=== PATIENT | female | born 1970 | race Two or more races ===

== ENCOUNTER 2022-06-04 13:55 | Inpatient (IN) | payer OTHER, MEDICAID, SELFPAY ==
[2022-06-04 14:25] VITALS: BP 140/91; PULSE 78; RESP 16; TEMP 36.6; O2SAT 98; BMI 27.4
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
--- NOTE | 2022-06-04 15:08 | MHC.CARE ---
Care Team completed [facility] smart sheet.
[2022-06-04] MEDS: LORazepam 1 MG TABLET PO ×2 (15:10→22:26)
[2022-06-04 15:38] LABS: Appearance Urine Clear; Color Urine Yellow; Glucose Urine UA Negative (Negative); Leukocyte Esterase Urine Trace (Negative); Nitrite Urine Negative (Negative); PH 5.5 (5.0-9.0); Specific Gravity - Urine 1.015 (1.005-1.025); UMIC TRIGGER UACC YES; Urine Blood Trace (Negative); Urine Ketones Negative (Negative); Urine Protein Negative (Neg-Trace)
[2022-06-04 15:40] LABS: UPreg QC Valid YES; Urine Pregnancy NEGATIVE (NEGATIVE)
[2022-06-04 16:02] LABS: Bacteria Urine None Seen (None Seen); Hyaline Casts Urine 0-2 /LPF (0-2); RBC Urine 0-2 /HPF (0-2); WBC Urine 0-5 /HPF (0-5)
[2022-06-04 16:02] LABS: MANUAL DIFF FLAG NO
[2022-06-04 16:07] LABS: Basophils Percent Auto 0.5 % (0-2); Eosinophils Absolute Auto 0.1 X10*3/uL (0.0-0.4); Eosinophils Percent Auto 1.7 % (0-4); Hematocrit 47.1 % (37.0-47.0); Hemoglobin 15.2 g/dl (12.0-16.0); Imm Gran Abs Auto 0.02 X10*3/uL (0.00-0.03); Imm Gran Pct Auto 0.3 % (0.0-0.4); Lymphocytes Absolute Auto 2.4 X10*3/uL (1.2-4.9); Lymphocytes Percent Auto 31.8 % (20-40); Mean Corpuscular HGB Conc 32.3 g/dl (31.0-35.0); Mean Corpuscular Hemoglobin 27.2 pg (27.0-33.0); Mean Corpuscular Volume 84.4 fL (80.0-98.0); Mean Platelet Volume 9.4 fL (9.4-12.3); Monocytes Absolute Auto 0.4 X10*3/uL (0.1-1.2); Monocytes Percent Auto 4.9 % (2-11); Neutrophils Absolute Auto 4.6 x10*3/uL (2.0-8.3); Neutrophils Percent Auto 60.8 % (45-73); Platelet Count 385 X10*3/uL (160-400); Red Blood Count 5.58 X10*6/uL (4.20-5.50); Red Cell Distribution Width 13.7 % (11.0-16.0); White Blood Count 7.5 X10*3/uL (4.8-10.8)
[2022-06-04 16:22] LABS: Alanine Aminotransferase 36 U/L (0-31); Albumin Level 4.2 g/dL (3.5-5.0); Alkaline Phosphatase 96 U/L (39-117); Anion Gap 19 (12-20); Aspartate Amino Transferase 39 U/L (5-31); Bilirubin Direct < 0.2 mg/dL (0.0-0.5); Bilirubin Total 0.4 mg/dL (0.0-1.0); Blood Urea Nitrogen 10 mg/dL (9-16); Calcium 9.1 mg/dL (8.4-10.2); Carbon Dioxide 18 mmol/L (22-29); Chloride 105 mmol/L (96-108); Creatinine Clr Calc Pharmacy 87.8; Estimated Glomerular Filt Rate > 60; Glucose Random 97 mg/dL (60-115); Potassium 4.8 mmol/L (3.3-5.1); Sodium 137 mmol/L (135-145); Total Protein 7.8 g/dL (6.5-8.0)
[2022-06-04 17:43] LABS: Amphetamine Screen Urine Not Detected (Not Detect); Barbiturates, Urine Not Detected (Not Detect); Benzodiazepines Screen Urine Not Detected (Not Detect); Cannabinoid Screen Urine POSITIVE (Not Detect); Cocaine Screen Urine Not Detected (Not Detect); Fentanyl, urine Not Detected (Not Detect); Opiate Screen Urine Not Detected (Not Detect); Phencyclidine Screen Urine Not Detected (Not Detect)
[2022-06-04 22:15] LABS: COVID-19 Test Negative (Negative); IDNOW Serial# 55D5AD1C
--- NOTE | 2022-06-04 23:22 | PC.NURSE ---
Patient sleeping comfortably, no distress noted at this time. Will continue to monitor.
[2022-06-05 00:51] VITALS: BP 134/106; PULSE 113; RESP 17; TEMP 36.5; O2SAT 97
[2022-06-05] MEDS: LORazepam 1 MG TABLET PO ×3 (01:01→20:56)
[2022-06-05] MEDS: Acetaminophen 325 MG TABLET 975 MG PO (01:01)
--- NOTE | 2022-06-05 06:39 | PC.NURSE ---
Patient was up few times to used the bathroom, no distress noted. Will continue to monitor.
[2022-06-05 08:58] VITALS: BP 139/86; PULSE 82; RESP 20; TEMP 36.7; O2SAT 95
--- NOTE | 2022-06-05 09:29 | PC.NURSE ---
pleasant this morningm, ambulatory to bathroom with a steady gait, makes needs known., no distress. states is aware of plan of care.
--- NOTE | 2022-06-05 12:44 | ECG_ITS ---
Test Reason : medical clearance Blood Pressure : / mmHG Vent. Rate : 080 BPM Atrial Rate : 080 BPM P-R Int : 164 ms QRS Dur : 076 ms QT Int : 378 ms P-R-T Axes : 048 025 021 degrees QTc Int : 435 ms Normal sinus rhythm Normal ECG No previous ECGs available Referred By: Juana Lowry Electronically Signed By:WALDO VARGAS MD
--- OUTSIDE RECORDS SUMMARY | 2022-06-05 14:06 | XMS_ITS | Continuity of Care Document ---
:1970 Author Organization [facility] Address [address] [place] [address]- Care Team Providers Name Role Phone Not on Staff, PCP Primary Care Physician Unavailable Encounter [facility] Date(s): 09/12/19 - 09/12/19 [facility] [address] [place] [id number]- [facility] Discharge Disposition: A-D/C Home Attending Physician: Wenceslao Pollock DO Admitting Physician: Wenceslao Pollock DO Referring Physician: Not on Staff, Referring MD Allergies, Adverse Reactions, Alerts No Known Medication Allergies Medications LORazepam 0.5 mg oral tablet 1 tablet = 0.5 mg, By Mouth, 2 times a day, mass pat checked max amount 1 mg daily, # 5 tablet, 0 Refills, Acute 09/14/19 12:00:00 EST, 09/12/19 20:00:00 EST, Tablet Start Date: 09/12/19 Stop Date: 09/14/19 Status: Ordered Vital Signs Most recent to oldest [Reference Range]: 1 2 Oxygen Saturation [94-100 %] 100 % 100 % (09/12/19 7:12 PM) (09/12/19 2:42 PM) Pulse Rate [55-90 bpm] 98 bpm 85 bpm *H* (09/12/19 2:42 PM) (09/12/19 7:12 PM) Blood Pressure [90-138/55-84 mm Hg] 123/80 mm Hg 124/ 79 mm Hg (09/12/19 7:12 PM) (09/12/19 2:42 PM) Respiratory Rate [16-30 br/min] 16 br/min 16 br/mi n (09/12/19 7:12 PM) (09/12/19 2:42 PM) Temperature [96.8-100.4 DegF] 98.4 DegF (09/12/19 2:42 PM) Mode of Delivery (Oxygen) Room air Room air (09/12/19 7:12 PM) (09/12/19 2:42 PM) Blood pressure sites Arm, right Arm, left (09/12/19 7:12 PM) (09/12/19 2:42 PM) Temperature Route Oral (09/12/19 2:42 PM)
--- OUTSIDE RECORDS SUMMARY | 2022-06-05 14:07 | XMS_ITS | Continuity of Care Document ---
:1970 Author Organization [facility] Address [address] [place] [address]- Care Team Providers Name Role Phone Not on Staff, PCP Primary Care Physician Unavailable Encounter [facility] Date(s): 04/02/22 - 04/02/22 [facility] [address] [place] [address]- Discharge Disposition: A-D/C Walkout Attending Physician: Not on Staff, Attending MD Admitting Physician: Not on Staff, Admitting MD Referring Physician: Not on Staff, Referring MD Allergies, Adverse Reactions, Alerts Substance Reaction Severity Status Paxil Active KlonoPIN Active Results Radiology Reports Exam Date Time Procedure Performing Provider Status 04/02/22 1:24 AM Chest 2 Views Frontal and Lat Lawrence , Bar; Au th (Verified) Notes:(Chest 2 Views Frontal and Lat) Reason For Exam: Chest Pain;Other:RESULT: Chest 2 Views Frontal and Lat Chest 2 Views Frontal and Lat Reason: Chest Pain; Clinical Question(s): Other: COMPARISON: None. FINDINGS: LINES AND TUBES: None. LUNGS AND PLEURA: Clear lungs. Normal pulmonary vascularity. No pleural effusion. No pneumothorax. HEART, MEDIASTINUM AND YENY: Heart is normal in size. Normal upper mediastinal and hilar contour. BONES AND SOFT TISSUES: No acute abnormality. Catheter projecting over the right upper quadrant partially visualized. IMPRESSION: No acute abnormality. WSN: [id number] Ordering Physician: Enzo Andre Dictated By: Selvin Ramirez MD Dictated Date/Time: 04/02/22 7:51 am Reviewed By: Selvin Ramirez MD Signed By: Selvin Ramirez MD Signed Date/Time: 04/02/22 7:51 am Transcribed By: JULES Transcribed Date/Time: 04/02/22 7:50 am Vital Signs Most recent to oldest 1 2 3 [Reference Range]: Oxygen Saturation [94-100 %] 100 % 100 % 100 % (04/02/22 5:51 AM) (04/02/22 4:38 AM) (04/02/22 3:1 2 AM) Pulse Rate [55-90 bpm] 75 bpm 74 bpm 73 bpm (04/02/22 5:51 AM) (04/02/22 4:38 AM) (04/02/22 3:1 2 AM) Blood Pressure [90-138/55-84 120/59 mm Hg 124/81 mm Hg 110 /77 mm Hg mm Hg] (04/02/22 5:51 AM) (04/02/22 4:38 AM) (04/02/22 3:1 2 AM) Respiratory Rate [16-30 18 br/min 16 br/min 16 br/mi n br/min] (04/02/22 4:38 AM) (04/02/22 1:20 AM) (04/02/22 12: 49 AM) Temperature [96.8-100.4 DegF] 97.8 DegF 97.8 DegF 97 .9 DegF (04/02/22 5:51 AM) (04/02/22 4:38 AM) (04/02/22 3:1 2 AM) Mode of Delivery (Oxygen) Room air Room air Room a ir (04/02/22 5:51 AM) (04/02/22 4:38 AM) (04/02/22 3:1 2 AM) Blood pressure sites Arm, left Arm, left Arm, left (04/02/22 5:51 AM) (04/02/22 4:38 AM) (04/02/22 3:1 2 AM) Temperature Route Oral Oral Oral (04/02/22 5:51 AM) (04/02/22 4:38 AM) (04/02/22 3:1 2 AM)
--- OUTSIDE RECORDS SUMMARY | 2022-06-05 14:07 | XMS_ITS | Continuity of Care Document ---
:1970 Author Organization [facility] Address [address] [place] [address]- Care Team Providers Name Role Phone Not on Staff, PCP Primary Care Physician Unavailable Encounter [facility] Date(s): 10/21/19 - 10/21/19 [facility] [address] [place] [address]- [facility] Encounter Diagnosis Anxiety (Final) - 10/21/19 Discharge Disposition: A-D/C Home Attending Physician: Paty Burk MD Admitting Physician: Paty Burk MD Referring Physician: Not on Staff, Referring MD Allergies, Adverse Reactions, Alerts No Known Medication Allergies Vital Signs Most recent to oldest [Reference Range]: 1 Oxygen Saturation [94-100 %] 100 % (10/21/19 3:22 PM) Pulse Rate [55-90 bpm] 85 bpm (10/21/19 3:22 PM) Blood Pressure [90-138/55-84 mm Hg] 127/77 mm Hg (10/21/19 3:22 PM) Respiratory Rate [16-30 br/min] 18 br/min (10/21/19 3:22 PM) Temperature [96.8-100.4 DegF] 98.0 DegF (10/21/19 3:22 PM) Mode of Delivery (Oxygen) Room air (10/21/19 3:22 PM) Blood pressure sites Arm, left (10/21/19 3:22 PM) Temperature Route Oral (10/21/19 3:22 PM)
--- NOTE | 2022-06-05 14:14 | PC.NURSE ---
patient medicated per order
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
[2022-06-05 18:09] VITALS: BMI 33.8
[2022-06-05] MEDS: hydrOXYzine HCL 25 MG TABLET PO (20:56)
[2022-06-05] MEDS: Acetaminophen 325 MG TABLET 650 MG PO (20:56)
[2022-06-05 20:58] VITALS: BP 127/83; PULSE 102; TEMP 36.7; O2SAT 97
[2022-06-06] MEDS: Acetaminophen 325 MG TABLET 650 MG PO (07:01)
[2022-06-06] MEDS: LORazepam 1 MG TABLET PO (07:02)
[2022-06-06 08:00] VITALS: BP 109/65; PULSE 77; RESP 18; TEMP 36.7; O2SAT 98
[2022-06-06 09:14] LABS: Estimated Average Glucose 108 mg/dL; Hemoglobin A1c % 5.4 %
[2022-06-06 09:33] LABS: Alanine Aminotransferase 29 U/L (0-31); Alkaline Phosphatase 89 U/L (39-117); Anion Gap 16 (12-20); Aspartate Amino Transferase 23 U/L (5-31); Bilirubin Direct < 0.2 mg/dL (0.0-0.5); Bilirubin Total 0.4 mg/dL (0.0-1.0); Blood Urea Nitrogen 12 mg/dL (9-16); Calcium 9.4 mg/dL (8.4-10.2); Carbon Dioxide 23 mmol/L (22-29); Chloride 104 mmol/L (96-108); Cholesterol 204 mg/dL; Creatinine Clr Calc Pharmacy 97.4; Estimated Glomerular Filt Rate > 60; Glucose Fasting 104 mg/dL (60-99); HDL Cholesterol 37 mg/dL; LDL Cholesterol Calculated 146 mg/dl; Potassium 4.3 mmol/L (3.3-5.1); Sodium 139 mmol/L (135-145); Total Protein 6.9 g/dL (6.5-8.0); Triglycerides 105 mg/dL
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
[2022-06-06 09:50] LABS: Free T4 (Free Thyroxine) 1.09 ng/dL (0.71-1.85); Thyroid Stimulating Hormone 1.15 uIU/mL (0.32-4.0)
[2022-06-06 09:58] LABS: Folate 7.6 ng/mL (> or = 4.0); Vitamin B12 339 pg/mL (200-900)
[2022-06-06] MEDS: LORazepam 0.5 MG TABLET PO ×2 (15:22→20:27)
--- NOTE | 2022-06-06 15:28 | PC.NURSE ---
Patient provided number for sister friend Lyssa Barnes [phone].
--- NOTE | 2022-06-06 16:37 | MHC.CLN ---
NUTRITION CONSULT FOR POOR APPETITE/WEIGHT LOSS. PATIENT REPORTS THAT SHE IS TRYING TO EAT SOMETHING AT EACH MEAL. DISCUSSED SNACKING/AVAILABILITY OF SNACKS ON UNIT. DOES NOT TYPICALLY SNACK. NO ENSURE SUPPLEMENT PER CONVERSATION. CONTINUE REGULAR DIET. PROVIDE MEAL AND SNACK PREFERENCES ABLE.
[2022-06-06] MEDS: hydrOXYzine HCL 25 MG TABLET PO (20:27)
[2022-06-06 21:34] VITALS: BP 125/78; PULSE 101; TEMP 36.7; O2SAT 96
[2022-06-07 07:00] VITALS: BMI 34.4
[2022-06-07 08:30] VITALS: BP 113/77; PULSE 91; RESP 18; TEMP 36.7; O2SAT 98
[2022-06-07] MEDS: LORazepam 0.5 MG TABLET PO ×3 (09:27→21:41)
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
[2022-06-07] MEDS: Acetaminophen 325 MG TABLET 650 MG PO (13:52)
[2022-06-07 20:37] VITALS: BP 118/78; PULSE 95; RESP 18; TEMP 36.8; O2SAT 95
--- NOTE | 2022-06-08 08:25 | HO.PSYCHPN ---
Subjective Subjective Date of Service: 06/08/22 Reason For Visit: Depression Interim History: Pt continues to endorse depressed mood, anhedonia, hopelessness. She is overwhelmed by fact that now needs to find new services, housing, and she has no income. Pt denies SI/HI. Long hx of depression, multiple medication trials. Pt reports sleeping well. No behavioral concerns. Review of Systems Review of Systems Except for painful boil on her back Yes all other systems are reviewed and are negative Constitutional: Reports as per HPI and Reports lethargy Eyes: Reports no additional eye complaints Reports system reviewed and no additional complaints, except as documented Cardiovascular: Reports no additional cardiovascular complaints and Denies dyspnea Respiratory: Denies chest congestion, Denies cough and Denies dyspnea Gastrointestinal: Reports no additional gastrointestinal complaints Mental Status Exam Mental Status Exam Narrative: Appearance: casually groomed, fair hygiene in NAD Behavior:cooperative psychomotor: no agitation or retardation noted Speech: clear, normal rate/rhythm/volume, spontaneous Thought process: linear Thought content: devastated by daughter's behavior but help seeking and future oriented. Mood: depressed Affect: congruent SI: passive, no plan or intent HI: none VH/AH: none Delusions: none Insight/judgment: fair x 3. Memory/cog: alert, oriented x 3. reports memory problems, difficulty remembering name of meds she's been on for long time. Consider MOCA. Diagnostics Vital Signs (24Hr): Vital Signs - 24 hr 06/08/22 09:38 06/08/22 20:51 Temperature 98.5 F 97.6 F Pulse Rate 95 101 H Respiratory Rate 18 18 Blood Pressure 105/71 113/59 L Pulse Oximetry 98 98 Oxygen Delivery Method Room Air Room Air BMI result Body Mass Index 34.4 Labs Results: 06/04/22 15:50 06/06/22 08:40 Medications Medications Current Medications Acetaminophen (Acetaminophen 325 Mg Tablet) 650 mg PO Q6H PRN PRN Reason: Headache/Pain Mild Scale (1-3) Last Admin: 06/08/22 20:48 Dose: 650 mg Al Hydroxide/Mg Hydroxide (Magnesium Hydrox/Alum Hydrox 30 Ml Oral.Susp) 30 ml PO Q6H PRN PRN Reason: Heartburn/Nausea Hydroxyzine HCl (Hydroxyzine Hcl 25 Mg Tablet) 25 mg PO Q6H PRN PRN Reason: Anxiety Last Admin: 06/06/22 20:27 Dose: 25 mg Lorazepam (Lorazepam 0.5 Mg Tablet) 0.5 mg PO TID LOURDES Last Admin: 06/08/22 20:48 Dose: 0.5 mg Magnesium Hydroxide (Milk Of Magnesia 30 Ml Oral.Susp) 30 ml PO DAILY PRN PRN Reason: Constipation Nicotine Polacrilex (Nicotine Polacrilex 2 Mg Gum) 4 mg BUCCAL Q2H PRN PRN Reason: Nicotine Cravings Trazodone HCl (Trazodone Hcl 50 Mg Tablet) 50 mg PO BEDTIME PRN PRN Reason: Insomnia Allergies Allergies Allergy/AdvReac Type Severity Reaction Status Date / Time clonazepam [From Klonopin] Allergy Unknown Verified 06/04/22 14:44 paroxetine [From Paxil] Allergy Unknown Verified 06/04/22 14:44 Assessment & Plan Assessment & Plan (1) MDD (major depressive disorder), recurrent episode, moderate: Status: Acute Code(s): F33.1 - Major depressive disorder, recurrent, moderate Plan Ms. Padilla is a 52 year-old woman with hx of MDD, trauma. Self presented to [facility] ED reporting SI, hopeless, helpless, insetting of recently moving to [place] to stay with daughter who ultimately kick her out. Pt currently staying with friend and plans to stay in [place]. We discussed risks, benefits and alternative treatment options. PLAN 1. Admit to M3, CV, 15 minutes checks for safety. 2. Ativan 0.5mg po BID. will called former psychiatrist to inquire about past med trials- pt does not remember. 3. Aftercare planning- connect with OP psych services, [facility] 4. Pt reports memory problems, will do MOCA. 06/07: continue current medications, discussed TMS OP. awaiting call from former psychiatrist re: med trials as pt does not remember 06/08 continue current tx. I spent minutes with the patient and/or on the patient floor today, greater than?50% of which was spent counseling/coordinating care. Reason for contiued inpatient stay Substantial Risk for: inability to function
[2022-06-08 09:38] VITALS: BP 105/71; PULSE 95; RESP 18; TEMP 36.9; O2SAT 98
[2022-06-08] MEDS: LORazepam 0.5 MG TABLET PO ×3 (10:29→20:48)
[2022-06-08] MEDS: Acetaminophen 325 MG TABLET 650 MG PO ×2 (13:47→20:48)
[2022-06-08 20:51] VITALS: BP 113/59; PULSE 101; RESP 18; TEMP 36.4; O2SAT 98
--- NOTE | 2022-06-09 08:03 | P.PNPSI_ITS ---
Subjective Subjective Date of Service: 06/09/22 Reason For Visit: Depression Subjective Notes: Conditional Voluntary Healthcare Proxy: No Guardianship: No Medical Problems Affecting Mental Status: No Interim History: Patient was seen and discussed in rounds today. Records and plans were revi ewed. She is slowly settling in. She complains of a painful boil/cyst on her back. I requested a hospitalist consult. She has been isolative. Eating and sleeping adequately. ECT is being considered. No complaints today. No changes were made today Medication Compliance: Yes Side effects from medications: Yes Review of Systems Review of Systems Except for painful boil on her back Yes all other systems are reviewed and are negative Mental Status Exam Mental Status Exam Narrative: Appearance: casually groomed, fair hygiene in NAD Behavior:cooperative psychomotor: no agitation or retardation noted Speech: clear, normal rate/rhythm/volume, spontaneous Thought process: linear Thought content: devastated by daughter's behavior but help seeking and future oriented. Mood: depressed Affect: congruent SI: passive, no plan or intent HI: none VH/AH: none Delusions: none Insight/judgment: fair x 3. Memory/cog: alert, oriented x 3. reports memory problems, difficulty remembering name of meds she's been on for long time. Consider MOCA. Diagnostics Vital Signs (24Hr): Vital Signs - 24 hr 06/08/22 09:38 06/08/22 20:51 Temperature 98.5 F 97.6 F Pulse Rate 95 101 H Respiratory Rate 18 18 Blood Pressure 105/71 113/59 L Pulse Oximetry 98 98 Oxygen Delivery Method Room Air Room Air BMI result Body Mass Index 34.4 Labs Results: 06/04/22 15:50 06/06/22 08:40 Medications Medications Current Medications Acetaminophen (Acetaminophen 325 Mg Tablet) 650 mg PO Q6H PRN PRN Reason: Headache/Pain Mild Scale (1-3) Last Admin: 06/08/22 20:48 Dose: 650 mg Al Hydroxide/Mg Hydroxide (Magnesium Hydrox/Alum Hydrox 30 Ml Oral.Susp) 30 ml PO Q6H PRN PRN Reason: Heartburn/Nausea Hydroxyzine HCl (Hydroxyzine Hcl 25 Mg Tablet) 25 mg PO Q6H PRN PRN Reason: Anxiety Last Admin: 06/06/22 20:27 Dose: 25 mg Lorazepam (Lorazepam 0.5 Mg Tablet) 0.5 mg PO TID LOURDES Last Admin: 06/08/22 20:48 Dose: 0.5 mg Magnesium Hydroxide (Milk Of Magnesia 30 Ml Oral.Susp) 30 ml PO DAILY PRN PRN Reason: Constipation Nicotine Polacrilex (Nicotine Polacrilex 2 Mg Gum) 4 mg BUCCAL Q2H PRN PRN Reason: Nicotine Cravings Trazodone HCl (Trazodone Hcl 50 Mg Tablet) 50 mg PO BEDTIME PRN PRN Reason: Insomnia Allergies Allergies Allergy/AdvReac Type Severity Reaction Status Date / Time clonazepam [From Klonopin] Allergy Unknown Verified 06/04/22 14:44 paroxetine [From Paxil] Allergy Unknown Verified 06/04/22 14:44 Assessment & Plan Assessment & Plan (1) MDD (major depressive disorder), recurrent episode, moderate: Status: Acute Code(s): F33.1 - Major depressive disorder, recurrent, moderate Plan Ms. Padilla is a 52 year-old woman with hx of MDD, trauma. Self presented to [facility] ED reporting SI, hopeless, helpless, insetting of recently moving to [place] to stay with daughter who ultimately kick her out. Pt currently staying with friend and plans to stay in [place]. We discussed risks, benefits and alternative treatment options. PLAN 1. Admit to M3, CV, 15 minutes checks for safety. 2. Ativan 0.5mg po BID. will called former psychiatrist to inquire about past med trials- pt does not remember. 3. Aftercare planning- connect with OP psych services, [facility] 4. Pt reports memory problems, will do MOCA. 06/09: Continue current regimen and plans and considerations for ECT. Hospital is consult was placed I spent minutes with the patient and/or on the patient floor today, greater than?50% of which was spent counseling/coordinating care. Reason for contiued inpatient stay Substantial Risk for: med/psych decompensation
[2022-06-09] MEDS: Acetaminophen 325 MG TABLET 650 MG PO (09:20)
[2022-06-09] MEDS: LORazepam 0.5 MG TABLET PO ×3 (09:21→22:13)
[2022-06-09 09:23] VITALS: BP 112/73; PULSE 98; RESP 17; TEMP 36.7; O2SAT 98
[2022-06-09] MEDS: Ibuprofen 600 MG TABLET PO (19:52)
[2022-06-09 21:00] VITALS: BP 121/70; PULSE 111; RESP 18; TEMP 36.8; O2SAT 96
[2022-06-10 01:00] VITALS: BP 122/79; PULSE 92; RESP 18
[2022-06-10] MEDS: hydrOXYzine HCL 25 MG TABLET PO (01:02)
--- NOTE | 2022-06-10 02:07 | PC.NURSE ---
Addendum entered by Darya Bermeo RN 06/10/22 02:20: Pt also reports her stomach has been bothering her due to eating foods she is not used to. She reports her anxiety peaks at night because she is worried her acid reflux will worsen and she will choke in her sleep. She is not sure if she has been receiving her acid reflux medication during her stay here. Pt offered dietary consult and reassured this will be communicated to the provider. Original Note: Pt approached nurse's station around 00:45 asking for bp to be taken. Pt reported increased anxiety and felt she was having a panic attack. Pt given prn hydroxyzine at 0100, given ice water, and asked to lay on the floor so was provided blankets and pillow. Pt spent approx. 15 mins with RN performing grounding techniques such as holding ice, focused breathing, distraction, guided imagery. Pt was able to regain control, drank a cup of tea, and sat talking w/staff about her anxiety. Pt requested room change, her roommate has an oxygen concentrator and the noise is triggering to her. She states her mother was on a ventilator and this triggers her anxiety and panic attacks. Pt allowed to sleep in side group room for the night, pt thankful.
--- NOTE | 2022-06-10 09:32 | HO.PSYCHPN ---
Subjective Subjective Date of Service: 06/10/22 Reason For Visit: Depression Interim History: Patient was seen and discussed in rounds today. Records and plans were reviewed. She had a very rough night and was trigger then had a severe panic attack. She ended coming down and going to sleep and got about 4 or 5 hours of sleep. She talked about her history of trauma. She has not been seen by the hospitalist for the lesion on her back yet. No complaints or side effects otherwise. No changes were made today Review of Systems Review of Systems Except for painful boil on her back Yes all other systems are reviewed and are negative Constitutional: Reports as per HPI and Reports lethargy Eyes: Reports no additional eye complaints Reports system reviewed and no additional complaints, except as documented Cardiovascular: Reports no additional cardiovascular complaints and Denies dyspnea Respiratory: Denies chest congestion, Denies cough and Denies dyspnea Gastrointestinal: Reports no additional gastrointestinal complaints Mental Status Exam Mental Status Exam Narrative: In today's visit she is alert, oriented and pleasant. Normal speech. Good eye contact. Affect is appropriate, constricted. No signs of psychosis. No delusions. Cognitively intact. No active SI. Judgment is intact Diagnostics Vital Signs (24Hr): Vital Signs - 24 hr 06/09/22 21:00 06/10/22 01:00 Temperature 98.2 F Pulse Rate 111 H 92 Respiratory Rate 18 18 Blood Pressure 121/70 122/79 Pulse Oximetry 96 Oxygen Delivery Method Room Air BMI result Body Mass Index 34.4 Labs Results: 06/04/22 15:50 06/06/22 08:40 Medications Medications Current Medications Acetaminophen (Acetaminophen 325 Mg Tablet) 650 mg PO Q6H PRN PRN Reason: Headache/Pain Mild Scale (1-3) Last Admin: 06/09/22 09:20 Dose: 650 mg Al Hydroxide/Mg Hydroxide (Magnesium Hydrox/Alum Hydrox 30 Ml Oral.Susp) 30 ml PO Q6H PRN PRN Reason: Heartburn/Nausea Hydroxyzine HCl (Hydroxyzine Hcl 25 Mg Tablet) 25 mg PO Q6H PRN PRN Reason: Anxiety Last Admin: 06/10/22 01:02 Dose: 25 mg Ibuprofen (Ibuprofen 600 Mg Tablet) 600 mg PO TIDWM PRN PRN Reason: Pain, Moderate (Pain Scale 4-6 Last Admin: 06/09/22 19:52 Dose: 600 mg Lorazepam (Lorazepam 0.5 Mg Tablet) 0.5 mg PO TID [facility] Last Admin: 06/09/22 22:13 Dose: 0.5 mg Magnesium Hydroxide (Milk Of Magnesia 30 Ml Oral.Susp) 30 ml PO DAILY PRN PRN Reason: Constipation Nicotine Polacrilex (Nicotine Polacrilex 2 Mg Gum) 4 mg BUCCAL Q2H PRN PRN Reason: Nicotine Cravings Trazodone HCl (Trazodone Hcl 50 Mg Tablet) 50 mg PO BEDTIME PRN PRN Reason: Insomnia Allergies Allergies Allergy/AdvReac Type Severity Reaction Status Date / Time clonazepam [From Klonopin] Allergy Unknown Verified 06/04/22 14:44 paroxetine [From Paxil] Allergy Unknown Verified 06/04/22 14:44 Assessment & Plan Assessment & Plan (1) MDD (major depressive disorder), recurrent episode, moderate: Status: Acute Code(s): F33.1 - Major depressive disorder, recurrent, moderate Plan Ms. Padilla is a 52 year-old woman with hx of MDD, trauma. Self presented to [facility] ED reporting SI, hopeless, helpless, insetting of recently moving to [place] to stay with daughter who ultimately kick her out. Pt currently staying with friend and plans to stay in [place]. We discussed risks, benefits and alternative treatment options. PLAN 1. Admit to M3, CV, 15 minutes checks for safety. 2. Ativan 0.5mg po BID. will called former psychiatrist to inquire about past med trials- pt does not remember. 3. Aftercare planning- connect with OP psych services, CSP 4. Pt reports memory problems, will do MOCA. 06/09: Continue current regimen and plans and considerations for ECT. Hospital is consult was placed 06/10: Continue current plans and regimen I spent minutes with the patient and/or on the patient floor today, greater than?50% of which was spent counseling/coordinating care. Reason for contiued inpatient stay Substantial Risk for: med/psych decompensation
[2022-06-10 09:50] VITALS: BP 114/78; PULSE 94; RESP 16; TEMP 36.6; O2SAT 99
[2022-06-10] MEDS: LORazepam 0.5 MG TABLET PO ×3 (09:53→22:43)
[2022-06-10] MEDS: Acetaminophen 325 MG TABLET 650 MG PO (15:57)
[2022-06-10 22:40] VITALS: BP 119/74; PULSE 93; RESP 18; TEMP 36.6; O2SAT 99
[2022-06-11] MEDS: hydrOXYzine HCL 25 MG TABLET PO (02:17)
[2022-06-11] MEDS: LORazepam 0.5 MG TABLET PO ×2 (08:59→14:52)
[2022-06-11 10:02] VITALS: BP 130/83; PULSE 105; RESP 15; TEMP 36.6; O2SAT 98
--- NOTE | 2022-06-11 13:50 | HO.PSYCHPN ---
Subjective Subjective Date of Service: 06/11/22 Reason For Visit: Depression Subjective Notes: Conditional Voluntary Interim History: Pt reports poor sleep in room with peer who is on oxygen machine. Pt reports it reminds her of her mother's current condition after stroke. Pt reports less depressed but still worried that she is not on antidepressant. We discussed that per pt she has been on mulitple medications with minimal therapeuric benefit. This engineering technical writer called her former psychiatrist, Dr. Randall again today to obtain medication trials as pt reports she does not remember them. Pt continues to have boil on back- warmth to touch, painful. started pt on keflex, pending surgeon consult re: removal. Pt denies SI/HI. No VH/AH. Pt did not remember talking with this engineering technical writer last week. MOCA scored on 06/09 , problems with recall, attention and orientation. executive function fairly intact. Medication Compliance: Yes Review of Systems Review of Systems Except for painful boil on her back Yes all other systems are reviewed and are negative Constitutional: Reports as per HPI and Reports lethargy Eyes: Reports no additional eye complaints Reports system reviewed and no additional complaints, except as documented Cardiovascular: Reports no additional cardiovascular complaints and Denies dyspnea Respiratory: Denies chest congestion, Denies cough and Denies dyspnea Gastrointestinal: Reports no additional gastrointestinal complaints Mental Status Exam Mental Status Exam Narrative: Appearance: casually groomed, fair hygiene in NAD Behavior:cooperative psychomotor: no agitation or retardation noted Speech: clear, normal rate/rhythm/volume, spontaneous Thought process: linear Thought content: devastated by daughter's behavior but help seeking and future oriented. Mood: depressed Affect: congruent SI: passive, no plan or intent HI: none VH/AH: none Delusions: none Insight/judgment: fair x 3. Memory/cog: alert, oriented x 3. MOCA scored on 06/09 , problems with recall (0/5), attention(1/6) and orientation (4/6). executive function fairly intact. Diagnostics Vital Signs (24Hr): Vital Signs - 24 hr 06/10/22 22:40 06/11/22 10:02 Temperature 97.8 F 97.9 F Pulse Rate 93 105 H Respiratory Rate 18 15 Blood Pressure 119/74 130/83 Pulse Oximetry 99 98 Oxygen Delivery Method Room Air Room Air BMI result Body Mass Index 34.4 Labs Results: 06/04/22 15:50 06/06/22 08:40 Medications Medications Current Medications Acetaminophen (Acetaminophen 325 Mg Tablet) 650 mg PO Q6H PRN PRN Reason: Headache/Pain Mild Scale (1-3) Last Admin: 06/10/22 15:57 Dose: 650 mg Al Hydroxide/Mg Hydroxide (Magnesium Hydrox/Alum Hydrox 30 Ml Oral.Susp) 30 ml PO Q6H PRN PRN Reason: Heartburn/Nausea Cephalexin HCl (Cephalexin 500 Mg Capsule) 500 mg PO BID [facility] Hydroxyzine HCl (Hydroxyzine Hcl 25 Mg Tablet) 25 mg PO Q6H PRN PRN Reason: Anxiety Last Admin: 06/11/22 02:17 Dose: 25 mg Ibuprofen (Ibuprofen 600 Mg Tablet) 600 mg PO TIDWM PRN PRN Reason: Pain, Moderate (Pain Scale 4-6 Last Admin: 06/09/22 19:52 Dose: 600 mg Lorazepam (Lorazepam 0.5 Mg Tablet) 0.5 mg PO TID [facility] Last Admin: 06/11/22 08:59 Dose: 0.5 mg Magnesium Hydroxide (Milk Of Magnesia 30 Ml Oral.Susp) 30 ml PO DAILY PRN PRN Reason: Constipation Nicotine Polacrilex (Nicotine Polacrilex 2 Mg Gum) 4 mg BUCCAL Q2H PRN PRN Reason: Nicotine Cravings Omeprazole (Omeprazole 20 Mg Capsule.Dr) 20 mg PO BID@0630,1630 [facility] Trazodone HCl (Trazodone Hcl 50 Mg Tablet) 50 mg PO BEDTIME PRN PRN Reason: Insomnia Allergies Allergies Allergy/AdvReac Type Severity Reaction Status Date / Time clonazepam [From Klonopin] Allergy Unknown Verified 06/04/22 14:44 paroxetine [From Paxil] Allergy Unknown Verified 06/04/22 14:44 Assessment & Plan Assessment & Plan (1) MDD (major depressive disorder), recurrent episode, moderate: Status: Acute Code(s): F33.1 - Major depressive disorder, recurrent, moderate Plan Ms. Padilla is a 52 year-old woman with hx of MDD, trauma. Self presented to [facility] reporting SI, hopeless, helpless, insetting of recently moving to [place] to stay with daughter who ultimately kick her out. Pt currently staying with friend and plans to stay in [place]. We discussed risks, benefits and alternative treatment options. PLAN 1. Admit to M3, CV, 15 minutes checks for safety. 2. Ativan 0.5mg po BID. will called former psychiatrist to inquire about past med trials- pt does not remember. 3. Aftercare planning- connect with OP psych services, CSP 4. Pt reports memory problems, will do MOCA. 06/09: Continue current regimen and plans and considerations for ECT. Hospital is consult was placed 06/10: Continue current plans and regimen 06/11 we discussed TMS, tomorrow pt will meet with coordinator of TMS, pending collateral infor from former psychiatrist re: antidepressant trials, as per pt she has had multiple trials but can't remember last one. Started pt on keflex re: boil in back- warmth to touch, painful until seen by surgeon re: removal. I spent minutes with the patient and/or on the patient floor today, greater than?50% of which was spent counseling/coordinating care. Reason for contiued inpatient stay Substantial Risk for: harm to self and inability to function
[2022-06-11] MEDS: cephALEXin 500 MG CAPSULE PO ×2 (14:52→21:17)
[2022-06-11] MEDS: Omeprazole 20 MG CAPSULE.DR PO (16:58)
[2022-06-11 20:15] VITALS: BP 108/62; PULSE 93; RESP 16; TEMP 36.6; O2SAT 99
[2022-06-11] MEDS: Magnesium Hydrox/Alum Hydrox 30 ML ORAL.SUSP PO (21:17)
--- NOTE | 2022-06-12 00:23 | P.HPGS_ITS ---
History of Present Illness History of Present Illness Date of Service: 06/12/22 Chief complaint: Depression Narrative: Astrid Padilla is a 52 year old female with a back inflamed sebaceous cyst or epidermal cyst = causing pain no drainage - had one in [place] past excised. pt is currently inpatient psych getting her meds adjusted. no fever or chills PMFSH Social History Social History Household Members: Friend(s) Household Members Other:: Friend and her daughter Housing: Homeless Housing Other:: Staying with friend Do you presently have visiting nurse or other home services: No Alcohol intake: unknown Patient Tobacco Use Status: Former Tobacco user Quit Date: quit 2 years ago Tobacco use type: Cigarette Years Smoked: 35 years Smoked in Last 30 Days: No e-Cigarette/Vaping Use: Never Used Patient Interested in Nicotine Replacement: No Patient Given Instructions on How to Stop Smoking: No Second Hand Smoke Exposure: No Use of substances other than those prescribed or required for medical reasons: Yes Substance Use Type: Marijuana Substance Use Type Other:: 3 weeks ago, I took two puffs of marijuana Substance Use Frequency: Chronic Longstanding Last Used Substance: Weeks (ago) Last Used Substance Other:: Stopped smoking in 2018 Currently Displaying Signs/Symptoms of Drug Intoxication Withdrawal: No Any prior treatment program specific to substance use: No Have you been hit, kicked, punched, or otherwise hurt by someone within the past year? If so, by whom?: No Do you feel safe in your current relationship?: No Current Relationship Is there a partner from a previous relationship who is making you feel unsafe now?: No Are you made to feel afraid or neglected: No Spiritual Healthcare Practices: None Scientologist Healthcare Practices: None Cultural Healthcare Practices: None Advance Directives: No Advance Directives Information Provided: No Healthcare Proxy: No Guardian: No Do you have thoughts of harming others: None Do you have a plan to hurt others: No Plan Recently lost weight without trying: Yes How much weight loss: Unsure Eating poorly because of decreased appetite: Yes Nutrition screen score: 5 Patient : No : No Poor oral hygiene: No service: No Sexual orientation: Straight/Heterosexual Meds Allergies Allergy/AdvReac Type Severity Reaction Status Date / Time clonazepam [From Klonopin] Allergy Unknown Verified 06/04/22 14:44 paroxetine [From Paxil] Allergy Unknown Verified 06/04/22 14:44 Active Medications: Current Medications Acetaminophen (Acetaminophen 325 Mg Tablet) 650 mg PO Q6H PRN PRN Reason: Headache/Pain Mild Scale (1-3) Last Admin: 06/10/22 15:57 Dose: 650 mg Al Hydroxide/Mg Hydroxide (Magnesium Hydrox/Alum Hydrox 30 Ml Oral.Susp) 30 ml PO Q6H PRN PRN Reason: Heartburn/Nausea Last Admin: 06/11/22 21:17 Dose: 30 ml Doxycycline Hyclate (Doxycycline Hyclate 100 Mg Tablet) 100 mg PO Q12H [facility] Hydroxyzine HCl (Hydroxyzine Hcl 25 Mg Tablet) 25 mg PO Q6H PRN PRN Reason: Anxiety Last Admin: 06/11/22 02:17 Dose: 25 mg Ibuprofen (Ibuprofen 600 Mg Tablet) 600 mg PO TIDWM PRN PRN Reason: Pain, Moderate (Pain Scale 4-6 Last Admin: 06/09/22 19:52 Dose: 600 mg Magnesium Hydroxide (Milk Of Magnesia 30 Ml Oral.Susp) 30 ml PO DAILY PRN PRN Reason: Constipation Nicotine Polacrilex (Nicotine Polacrilex 2 Mg Gum) 4 mg BUCCAL Q2H PRN PRN Reason: Nicotine Cravings Omeprazole (Omeprazole 20 Mg Capsule.Dr) 20 mg PO BID@0630,1630 [facility] Last Admin: 06/11/22 16:58 Dose: 20 mg Trazodone HCl (Trazodone Hcl 50 Mg Tablet) 50 mg PO BEDTIME PRN PRN Reason: Insomnia Physical Exam Vital Signs: Vital Signs: Last Vital Signs Temp 97.9 F 06/11/22 20:15 Pulse 93 06/11/22 20:15 Resp 16 06/11/22 20:15 BP 108/62 06/11/22 20:15 Pulse Ox 99 06/11/22 20:15 O2 Del Method 06/11/22 20:15 BMI result Body Mass Index 34.4 Skin: Other: left upper back with nickel sized mildly erthematous firm indurated area with sinus open, no fluctuance, no drainage Results Results Labs: Urine 06/04/22 06/04/22 Range/Units 14:59 14:59 Urine Color Yellow Urine Appearance Clear Urine pH 5.5 (5.0-9.0) Ur Specific [place] 1.015 (1.005-1.025) Urine Protein Negative (Neg-Trace) mg/dL Urine Glucose (UA) Negative (Negative) mg/dL Urine Test NEGATIVE (NEGATIVE) Assessment and Plan (1) Infected sebaceous cyst of skin: Status: Acute Plan 52 year old female wth infected sebaceous cyst - inpatient psych. cyst not too bad - nothing to drain at this time. pt with n previous history of mrsa but wo uld treat with meds to potentially cover it as she is inpatient. if this improves consider outpt elective excision of this area in 3-6 months. will follow up in 2 days and if not better consdier i&d then. ibuprofen for inflammation and pain control Quality Stroke Does the patient have a stroke diagnosis?: No VTE Prior VTE?: No VTE Risk Level:: Medical - low VTE Device Contraindication: Treatment Not Indicated VTE Drug Contraindication: Treatment Not Indicated Procedures Date of Service Date of Service: 06/11/22
[2022-06-12 06:00] VITALS: BP 137/77; PULSE 80; RESP 18; TEMP 36.6; O2SAT 98
[2022-06-12] MEDS: Omeprazole 20 MG CAPSULE.DR PO ×2 (06:52→16:54)
[2022-06-12] MEDS: Acetaminophen 325 MG TABLET 650 MG PO ×2 (06:52→22:40)
[2022-06-12] MEDS: LORazepam 0.5 MG TABLET PO ×3 (08:56→22:40)
--- NOTE | 2022-06-12 13:49 | P.PNPSI_ITS ---
Subjective Subjective Date of Service: 06/12/22 Reason For Visit: Depression Subjective Notes: Conditional Voluntary Interim History: Pt reports feeling calmer this morning. However, pt continues to endorse depressed mood, anxious mood. She reports feeling overwhelmed but at same time asking if she can be discharged soon rather than later. Pt later went to see co ordinator for TMS- given that she's had multiple med trials with limited efficacy. Pt hesitant and ambivalent which appears to be more symptoms of her own anxiety and depressed mood. Pt overwhelmed with information given about TMS, worried about potential side effects. Recall is impaired at times as seen in MOCA. Medication Compliance: Yes Side effects from medications: No Review of Systems Review of Systems Except for painful boil on her back Yes all other systems are reviewed and are negative Constitutional: Reports as per HPI and Reports lethargy Eyes: Reports no additional eye complaints Reports system reviewed and no additional complaints, except as documented Cardiovascular: Reports no additional cardiovascular complaints and Denies dyspnea Respiratory: Denies chest congestion, Denies cough and Denies dyspnea Gastrointestinal: Reports no additional gastrointestinal complaints Mental Status Exam Mental Status Exam Narrative: Appearance: casually groomed, fair hygiene in NAD Behavior:cooperative psychomotor: no agitation or retardation noted Speech: clear, normal rate/rhythm/volume, spontaneous Thought process: linear Thought content: devastated by daughter's behavior but help seeking and future oriented. Mood: depressed Affect: congruent SI: passive, no plan or intent HI: none VH/AH: none Delusions: none Insight/judgment: fair x 3. Memory/cog: alert, oriented x 3. MOCA scored on 06/09 18/30, problems with recall (0/5), attention(1/6) and orientation (4/6). executive function fairly intact. Diagnostics Vital Signs (24Hr): Vital Signs - 24 hr 06/11/22 20:15 06/12/22 06:00 Temperature 97.9 F 97.9 F Pulse Rate 93 80 Respiratory Rate 16 18 Blood Pressure 108/62 137/77 Pulse Oximetry 99 98 Oxygen Delivery Method Room Air Room Air BMI result Body Mass Index 34.4 Labs Results: 06/04/22 15:50 06/06/22 08:40 Medications Medications Current Medications Acetaminophen (Acetaminophen 325 Mg Tablet) 650 mg PO Q6H PRN PRN Reason: Headache/Pain Mild Scale (1-3) Last Admin: 06/12/22 06:52 Dose: 650 mg Al Hydroxide/Mg Hydroxide (Magnesium Hydrox/Alum Hydrox 30 Ml Oral.Susp) 30 ml PO Q6H PRN PRN Reason: Heartburn/Nausea Last Admin: 06/11/22 21:17 Dose: 30 ml Doxycycline Hyclate (Doxycycline Hyclate 100 Mg Tablet) 100 mg PO Q12H [facility] Last Admin: 06/12/22 08:57 Dose: 100 mg Hydroxyzine HCl (Hydroxyzine Hcl 25 Mg Tablet) 25 mg PO Q6H PRN PRN Reason: Anxiety Last Admin: 06/11/22 02:17 Dose: 25 mg Ibuprofen (Ibuprofen 600 Mg Tablet) 600 mg PO TIDWM PRN PRN Reason: Pain, Moderate (Pain Scale 4-6 Last Admin: 06/09/22 19:52 Dose: 600 mg Lorazepam (Lorazepam 0.5 Mg Tablet) 0.5 mg PO TID [facility] Last Admin: 06/12/22 14:34 Dose: 0.5 mg Magnesium Hydroxide (Milk Of Magnesia 30 Ml Oral.Susp) 30 ml PO DAILY PRN PRN Reason: Constipation Nicotine Polacrilex (Nicotine Polacrilex 2 Mg Gum) 4 mg BUCCAL Q2H PRN PRN Reason: Nicotine Cravings Omeprazole (Omeprazole 20 Mg Capsule.Dr) 20 mg PO BID@0630,1630 [facility] Last Admin: 06/12/22 06:52 Dose: 20 mg Trazodone HCl (Trazodone Hcl 50 Mg Tablet) 50 mg PO BEDTIME PRN PRN Reason: Insomnia Allergies Allergies Allergy/AdvReac Type Severity Reaction Status Date / Time clonazepam [From Klonopin] Allergy Unknown Verified 06/04/22 14:44 paroxetine [From Paxil] Allergy Unknown Verified 06/04/22 14:44 Assessment & Plan Assessment & Plan (1) MDD (major depressive disorder), recurrent episode, moderate: Status: Acute Code(s): F33.1 - Major depressive disorder, recurrent, moderate Plan Cyst-- per medicine: 52 year old female wth infected sebaceous cyst - inpatient psych. cyst not too bad - nothing to drain at this time. pt with n previous history of mrsa but would treat with meds to potentially cover it as she is in patient. if this improves consider outpt elective excision of this area in 3-6 months. will follow up in 2 days and if not better consdier i&d then. ibuprofen for inflammation and pain control PSYCH 06/12- pt has been on trintellix in the past briefly. we can order it and have it delivered, at same time pt reports she wants to be discharged as soon as possible. memory gaps noted, in terms of ability to retain information. hesitant about TMS. I spent minutes with the patient and/or on the patient floor today, greater than?50% of which was spent counseling/coordinating care. Reason for contiued inpatient stay Substantial Risk for: inability to function
[2022-06-12 22:30] VITALS: BP 118/81; PULSE 98; RESP 16; TEMP 36.7; O2SAT 97
[2022-06-13] MEDS: LORazepam 0.5 MG TABLET PO ×3 (08:41→22:18)
[2022-06-13] MEDS: Omeprazole 20 MG CAPSULE.DR PO ×2 (08:42→18:21)
[2022-06-13 11:49] VITALS: BP 105/71; PULSE 84; RESP 16; TEMP 36.4; O2SAT 98
[2022-06-13] MEDS: cloNIDine HCL 0.1 MG TABLET PO (11:56)
--- NOTE | 2022-06-13 12:22 | P.PNPSI_ITS ---
Subjective Subjective Date of Service: 06/13/22 Reason For Visit: Depression Subjective Notes: Conditional Voluntary Interim History: Pt reports feeling less anxious, less depressed. She appears to be easily triggered and overwhelmed. She denies SI/HI. She continues to be hesitant about TMS worried about side effects, despite reassurance that potential side effects limited to temporary headache after treatment- it appears her anxiety is impairing her decisions and is barrier to treatment. She agreed to start clonidine. This commercial real estate underwriter was able to speak with her former psychiatrist who reports pt has had panic attacks which she later reports is due to medication and would stop them. Pt has been seen to have panic attacks here. Medication Compliance: Yes Side effects from medications: No Review of Systems Review of Systems Except for painful boil on her back Yes all other systems are reviewed and are negative Constitutional: Reports as per HPI and Reports lethargy Eyes: Reports no additional eye complaints Reports system reviewed and no additional complaints, except as documented Cardiovascular: Reports no additional cardiovascular complaints and Denies dyspnea Respiratory: Denies chest congestion, Denies cough and Denies dyspnea Gastrointestinal: Reports no additional gastrointestinal complaints Mental Status Exam Mental Status Exam Narrative: Appearance: casually groomed, fair hygiene in NAD Behavior:cooperative psychomotor: no agitation or retardation noted Speech: clear, normal rate/rhythm/volume, spontaneous Thought process: linear Thought content: devastated by daughter's behavior but help seeking and future oriented. Mood: depressed Affect: congruent SI: passive, no plan or intent HI: none VH/AH: none Delusions: none Insight/judgment: fair x 3. Memory/cog: alert, oriented x 3. MOCA scored on 06/09 18/30, problems with recall (0/5), attention(1/6) and orientation (4/6). executive function fairly intact. Diagnostics Vital Signs (24Hr): Vital Signs - 24 hr 06/13/22 11:49 06/13/22 22:20 Temperature 97.6 F 97.8 F Pulse Rate 84 83 Respiratory Rate 16 Blood Pressure 105/71 114/86 Pulse Oximetry 98 98 Oxygen Delivery Method Room Air Room Air BMI result Body Mass Index 34.4 Labs Results: 06/04/22 15:50 06/06/22 08:40 Medications Medications Current Medications Acetaminophen (Acetaminophen 325 Mg Tablet) 650 mg PO Q6H PRN PRN Reason: Headache/Pain Mild Scale (1-3) Last Admin: 06/13/22 15:08 Dose: 650 mg Al Hydroxide/Mg Hydroxide (Magnesium Hydrox/Alum Hydrox 30 Ml Oral.Susp) 30 ml PO Q6H PRN PRN Reason: Heartburn/Nausea Last Admin: 06/11/22 21:17 Dose: 30 ml Clonidine HCl (Clonidine Hcl 0.1 Mg Tablet) 0.1 mg PO DAILY [facility]; Protocol Last Admin: 06/13/22 11:56 Dose: 0.1 mg Doxycycline Hyclate (Doxycycline Hyclate 100 Mg Tablet) 100 mg PO Q12H [facility] Last Admin: 06/13/22 22:18 Dose: 100 mg Hydroxyzine HCl (Hydroxyzine Hcl 25 Mg Tablet) 25 mg PO Q6H PRN PRN Reason: Anxiety Last Admin: 06/13/22 23:17 Dose: 25 mg Ibuprofen (Ibuprofen 600 Mg Tablet) 600 mg PO TIDWM PRN PRN Reason: Pain, Moderate (Pain Scale 4-6 Last Admin: 06/09/22 19:52 Dose: 600 mg Lorazepam (Lorazepam 0.5 Mg Tablet) 0.5 mg PO TID [facility] Last Admin: 06/13/22 22:18 Dose: 0.5 mg Magnesium Hydroxide (Milk Of Magnesia 30 Ml Oral.Susp) 30 ml PO DAILY PRN PRN Reason: Constipation Nicotine Polacrilex (Nicotine Polacrilex 2 Mg Gum) 4 mg BUCCAL Q2H PRN PRN Reason: Nicotine Cravings Omeprazole (Omeprazole 20 Mg Capsule.Dr) 20 mg PO BID@0630,1630 [facility] Last Admin: 06/13/22 18:21 Dose: 20 mg Trazodone HCl (Trazodone Hcl 50 Mg Tablet) 50 mg PO BEDTIME PRN PRN Reason: Insomnia Allergies Allergies Allergy/AdvReac Type Severity Reaction Status Date / Time clonazepam [From Klonopin] Allergy Unknown Verified 06/04/22 14:44 paroxetine [From Paxil] Allergy Unknown Verified 06/04/22 14:44 Assessment & Plan Assessment & Plan (1) MDD (major depressive disorder), recurrent episode, moderate: Status: Acute Code(s): F33.1 - Major depressive disorder, recurrent, moderate Plan Cyst-- per medicine: 52 year old female wth infected sebaceous cyst - inpatient psych. cyst not too bad - nothing to drain at this time. pt with n previous history of mrsa but would treat with meds to potentially cover it as she is inpatient. if this improves consider outpt elective excision of this area in 3-6 months. will follow up in 2 days and if not better consdier i&d then. ibuprofen for inflammation and pain control PSYCH 06/12- pt has been on trintellix in the past briefly. we can order it and have it delivered, at same time pt reports she wants to be discharged as soon as possible. memory gaps noted, in terms of ability to retain information. hesitant about TMS. 06/13 continue current tx. d/c tomorrow. I spent minutes with the patient and/or on the patient floor today, greater than?50% of which was spent counseling/coordinating care. Reason for contiued inpatient stay Substantial Risk for: stable for discharge
[2022-06-13] MEDS: Acetaminophen 325 MG TABLET 650 MG PO (15:08)
[2022-06-13 22:20] VITALS: BP 114/86; PULSE 83; TEMP 36.6; O2SAT 98
[2022-06-13] MEDS: hydrOXYzine HCL 25 MG TABLET PO (23:17)
[2022-06-14 09:32] VITALS: BP 134/79; PULSE 109; RESP 17; TEMP 35.9; O2SAT 98
[2022-06-14] MEDS: Omeprazole 20 MG CAPSULE.DR PO (09:34)
[2022-06-14] MEDS: LORazepam 0.5 MG TABLET PO (09:34)
[2022-06-14] MEDS: cloNIDine HCL 0.1 MG TABLET PO (09:34)
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
== END 2022-06-14 11:15 | disposition home health service (06) | DRG 751 ==
LOC: HO.ED 06-05 06:45 → HO.PADLT16 06-05 14:05
PROVIDERS: Emergency Medicine; Physician Assistant; Admitting Provider Psychiatry & Neurology Psychiatry; Emergency Provider Emergency Medicine Emergency Medical Services; Visit Provider Social Worker
DX: F33.1 Major depressive disorder, recurrent, moderate (principal); F40.01 Agoraphobia with panic disorder; L72.3 Sebaceous cyst; F43.10 Post-traumatic stress disorder, unspecified; Z20.822 Contact with and (suspected) exposure to COVID-19; Z87.891 Personal history of nicotine dependence; Z88.8 Allergy status to other drugs, medicaments and biological substances; Z79.899 Other long term (current) drug therapy
CPT/HCPCS: 36415; 80048; 80053; 80061; 80076; 80307; 81001; 81025; 82607; 82746; 83036; 83735; 84439; 84443; 85025; 87635; 93005; 99285

== ENCOUNTER 2022-06-16 18:31 | Inpatient (IN) | payer OTHER, SELFPAY ==
[2022-06-16 18:45] VITALS: BP 130/82; BP 178/98; PULSE 97; PULSE 98; RESP 16; TEMP 37; O2SAT 98; O2SAT 99; BMI 34.0
--- NOTE | 2022-06-16 18:46 | ED_ITS ---
HPI - Psych General Stated Complaint: CRISIS Time Seen by Provider: 06/16/22 18:35 Source: patient and old records reviewed Mode of arrival: EMS Limitations: no limitations History of Present Illness MD complaint: feels depressed and anxiety Onset (ago): day(s) (2) Duration: getting worse History of same: Yes Relieving factors: none Exacerbating factors: other Context: significant life stressor Associated psychiatric symptoms: depression Associated symptoms: denies other symptoms Treatments prior to arrival: none Related Data Previous Rx's Medication Instructions Recorded vortioxetine 5 mg tablet 5 mg PO DAILY #30 tabs 06/12/22 (Trintellix) acetaminophen 325 mg tablet 650 mg PO Q6H PRN Headache/Pain 06/14/22 Mild Scale (1-3) #60 tabs clonidine HCl 0.1 mg tablet 0.1 mg PO DAILY #30 tabs 06/14/22 doxycycline hyclate 100 mg tablet 100 mg PO Q12H #8 tabs 06/14/22 ibuprofen 600 mg tablet 600 mg PO TIDWM PRN Pain, Moderate 06/14/22 (Pain Scale 4-6 #60 tabs omeprazole 20 mg capsule,delayed 20 mg PO BID@0630,1630 #60 caps 06/14/22 release lorazepam 0.5 mg tablet (Ativan) 0.5 mg PO TID #90 tabs 06/16/22 Allergies Allergy/AdvReac Type Severity Reaction Status Date / Time clonazepam [From Klonopin] Allergy Unknown Verified 06/04/22 14:44 paroxetine [From Paxil] Allergy Unknown Verified 06/04/22 14:44 Review of Systems Review of Systems: Constitutional : No Fever, No Chills ENT/Mouth : No Ear Pain, No Nasal Congestion, No sore throat Eyes: No Eye Pain, No Swelling, No Redness Cardiovascular : No Chest Pain, No SOB Respiratory : No Cough, No Sputum, No Dyspnea Gastrointestinal : No Nausea, No Vomiting, No Diarrhea, No Hematochezia, No Melena Genitourinary : No Dysuria, No Urinary Frequency, No Hematuria Musculoskeletal : No Myalgias Skin : No Skin Lesions, No rash Neuro : No Weakness, No Numbness, No Paresthesias, No Dizziness, No Headache Psych : positive Anxiety, positive Depression, no SI/HI Heme/Lymph: No Lymphadenopathy Endocrine : No Polyuria, No Polydipsia All other systems reviewed and are negative [facility] Past Medical History Attestation statement: The following information was validated with the patient. Source: old records reviewed Medical History Anxiety Depressed MDD (major depressive disorder), recurrent episode, moderate Social History Social History Household Members: Friend(s) Household Members Other:: Friend and her daughter Housing: Homeless Housing Other:: Staying with friend Do you presently have visiting nurse or other home services: No Alcohol intake: unknown Patient Tobacco Use Status: Former Tobacco user Quit Date: quit 2 years ago Tobacco use type: Cigarette Years Smoked: 35 years e-Cigarette/Vaping Use: Never Used Second Hand Smoke Exposure: No Substance Use Type: Marijuana service: No Sexual orientation: Straight/Heterosexual Physical Exam Vital Signs: Appearance: Alert. Oriented X3. No acute distress. Tearful but calm and cooperative Eyes: Pupils equal, round and reactive to light. ENT: Pharynx normal. Neck: Normal inspection. Neck supple. CVS: Normal heart rate and rhythm. Pulses normal. Respiratory: No respiratory distress. Breath sounds normal. Abdomen: Soft and nontender. Skin: Skin warm and dry. Normal skin color. Normal skin turgor. Extremities: No lower extremity edema. No calf ttp Neuro: Oriented X 3. No motor deficit. No sensory deficit. CN2-12 intact Course Course Course Narrative: Physician observation started at 648pm. Patient placed in physician observation because the patient needed more time for BHN to assess the need for psych admission. At the time observation was started the patient's vitals were stable, patient is alert and oriented but slightly anxious Neuro: nonfocal, CV RRR, Lungs clear MDM - Psych MDM Narrative Medical decision making narrative: 52 yo female wtih anxiety and depression who just left our inpatient unit had a safe DC plan but then her friend is acting erratic and the patient does not want to stay with her, the patient is overwhelmed and is asking to talk to crisis as she is depressed and needs help with placement, no SI. Discharge Plan Discharge Clinical Impression: Anxiety Patient Disposition: Still a Patient Prescriptions: No Action Trintellix 5 mg tablet 5 mg PO DAILY Qty: 30 0RF Rx Instructions: deliver to [facility] clonidine HCl 0.1 mg Tablet 0.1 mg PO DAILY Qty: 30 0RF Protocol: Hold for SBP< HOLD for SBP < : 90 acetaminophen 325 mg Tablet 650 mg PO Q6H PRN (Reason: Headache/Pain Mild Scale (1-3)) Qty: 60 0RF omeprazole 20 mg Capsule,Delayed Release(Dr/Ec) 20 mg PO BID@0630,1630 Qty: 60 0RF ibuprofen 600 mg Tablet 600 mg PO TIDWM PRN (Reason: Pain, Moderate (Pain Scale 4-6) Qty: 60 0RF doxycycline hyclate 100 mg Tablet 100 mg PO Q12H Qty: 8 0RF lorazepam [Ativan] 0.5 mg tablet 0.5 mg PO TID Qty: 90 0RF
--- NOTE | 2022-06-16 20:35 | PC.NURSE ---
2000 ROUNDING DONE PT WAS GIVEN 2 [employer]ANDWICH AND DAVID JOSEPH FOR SUPPER .
--- NOTE | 2022-06-16 20:53 | PC.NURSE ---
pt covid swab and mathews urine done and sent to lab .
[2022-06-16 21:14] LABS: COVID-19 Test Negative (Negative)
[2022-06-16 21:28] LABS: Amphetamine Screen Urine Not Detected (Not Detect); Barbiturates, Urine Not Detected (Not Detect); Benzodiazepines Screen Urine Not Detected (Not Detect); Cannabinoid Screen Urine POSITIVE (Not Detect); Cocaine Screen Urine Not Detected (Not Detect); Fentanyl, urine Not Detected (Not Detect); Opiate Screen Urine Not Detected (Not Detect); Phencyclidine Screen Urine Not Detected (Not Detect)
[2022-06-16] MEDS: Acetaminophen 325 MG TABLET 650 MG PO (21:53)
[2022-06-16 22:00] VITALS: BP 121/82; PULSE 79; RESP 16; TEMP 36.5; O2SAT 98
--- NOTE | 2022-06-16 22:09 | PC.NURSE ---
2200 rounding done vs taken patient is on phone at this time .
--- NOTE | 2022-06-16 22:44 | PC.NURSE ---
Smart sheet completed.
--- NOTE | 2022-06-17 00:11 | PC.NURSE ---
0000 rounding made pt is sleeping call toro within reach .
--- NOTE | 2022-06-17 01:47 | PC.NURSE ---
Pt reports increased anxiety. Pt is crying and shaking. Denies SI/HI at this time. made aware.
[2022-06-17] MEDS: OLANZapine 10 MG TABLET PO (02:11)
--- NOTE | 2022-06-17 02:21 | PC.NURSE ---
0200 ROUNDING DONE ,PT IS AWAKE AND IS TEARFUL ,THIS PCT ASK PT IF SHE WAS OK PT SAID YES .
[2022-06-17 06:46] VITALS: BP 106/64; PULSE 67; RESP 16; O2SAT 99
--- NOTE | 2022-06-17 07:19 | MHC.CARE ---
Smart sheet submitted
--- NOTE | 2022-06-17 07:56 | PC.NURSE ---
CARE TEAM IN TO SPEAK WITH PATIENT
--- NOTE | 2022-06-17 15:39 | PHA.MEDREC ---
Pharmacy Consult ? Medication Reconciliation Pharmacy has completed the medication reconciliation. Patient reports no longer taking Trintellix. Imani Damon, BrittaniD
[2022-06-17] MEDS: Acetaminophen 325 MG TABLET 650 MG PO (16:11)
[2022-06-17] MEDS: LORazepam 1 MG TABLET PO ×2 (16:11→20:56)
[2022-06-17] MEDS: Omeprazole 20 MG CAPSULE.DR PO (17:47)
[2022-06-17] MEDS: Ibuprofen 600 MG TABLET PO (19:28)
[2022-06-17] MEDS: Nortriptyline HCl 25 MG CAPSULE PO (20:54)
[2022-06-18 04:53] VITALS: BP 124/70; PULSE 71; RESP 16; TEMP 36.3; O2SAT 99
[2022-06-18] MEDS: Acetaminophen 325 MG TABLET 650 MG PO (05:28)
[2022-06-18] MEDS: Omeprazole 20 MG CAPSULE.DR PO (05:29)
--- NOTE | 2022-06-18 05:39 | PC.NURSE ---
Patient slept through the night, no distress observed/reported, disposition per care team is voluntary inpatient bed search, behavior non concerning, follows direction well, compliant with medication, mood depressed, VSS, will continue to monitor.
[2022-06-18] MEDS: cloNIDine HCL 0.1 MG TABLET PO (08:43)
[2022-06-18] MEDS: LORazepam 1 MG TABLET PO ×3 (08:43→20:58)
[2022-06-18 13:08] VITALS: BP 112/74; PULSE 79; RESP 16; TEMP 37.1; O2SAT 97
--- NOTE | 2022-06-18 14:43 | ECG_ITS ---
Test Reason : PSYCH MEDS Blood Pressure : / mmHG Vent. Rate : 075 BPM Atrial Rate : 075 BPM P-R Int : 178 ms QRS Dur : 086 ms QT Int : 406 ms P-R-T Axes : 034 030 029 degrees QTc Int : 453 ms AGE AND GENDER SPECIFIC ECG ANALYSIS Normal sinus rhythm Right atrial enlargement Low voltage QRS Posterior infarct , possibly acute ACUTE AR / STEMI Abnormal ECG When compared with ECG of 05-JUN-2022 12:27, No significant change was found Referred By: Dariela Archer Electronically Signed By:
--- NOTE | 2022-06-18 14:44 | PC.NURSE ---
rn to rn given to chrissie. pt aware of plan of care for transfer to today.
--- NOTE | 2022-06-18 15:33 | PC.NURSE ---
assumed care of pt at 1500, plan to transfer to M5 after lab work results, report called into M5 by previous RN.
[2022-06-18 16:21] LABS: MANUAL DIFF FLAG NO
[2022-06-18 16:23] LABS: Basophils Percent Auto 0.4 % (0-2); Eosinophils Absolute Auto 0.1 X10*3/uL (0.0-0.4); Eosinophils Percent Auto 1.8 % (0-4); Hematocrit 43.6 % (37.0-47.0); Hemoglobin 14.3 g/dl (12.0-16.0); Imm Gran Abs Auto 0.01 X10*3/uL (0.00-0.03); Imm Gran Pct Auto 0.1 % (0.0-0.4); Lymphocytes Absolute Auto 2.8 X10*3/uL (1.2-4.9); Lymphocytes Percent Auto 38.3 % (20-40); Mean Corpuscular HGB Conc 32.8 g/dl (31.0-35.0); Mean Corpuscular Hemoglobin 27.3 pg (27.0-33.0); Mean Corpuscular Volume 83.2 fL (80.0-98.0); Monocytes Absolute Auto 0.4 X10*3/uL (0.1-1.2); Monocytes Percent Auto 4.9 % (2-11); Neutrophils Absolute Auto 3.9 x10*3/uL (2.0-8.3); Neutrophils Percent Auto 54.5 % (45-73); Platelet Count 341 X10*3/uL (160-400); Red Blood Count 5.24 X10*6/uL (4.20-5.50); Red Cell Distribution Width 13.6 % (11.0-16.0); White Blood Count 7.2 X10*3/uL (4.8-10.8)
--- NOTE | 2022-06-18 16:34 | PC.NURSE ---
recollect for chemistry requested from lab. tech reports extremely tough stick. rn aware and will attempt to obtain or call lab.
--- NOTE | 2022-06-18 16:53 | PC.NURSE ---
phlebotomy contacted regarding recollect labs.
[2022-06-18 18:10] LABS: Anion Gap 13 (12-20); Blood Urea Nitrogen 13 mg/dL (9-16); Calcium 9.2 mg/dL (8.4-10.2); Carbon Dioxide 25 mmol/L (22-29); Chloride 104 mmol/L (96-108); Creatinine Clr Calc Pharmacy 101.7; Estimated Glomerular Filt Rate > 60; Glucose Random 92 mg/dL (60-115); Potassium 4.3 mmol/L (3.3-5.1); Sodium 138 mmol/L (135-145)
[2022-06-18 18:16] LABS: Troponin-I High Sensitivity < 3.5 ng/L (<3.5-17.0)
--- NOTE | 2022-06-18 18:18 | PC.NURSE ---
labs resulted in chart, M5 notified. pt transfer pending orders.
--- NOTE | 2022-06-18 20:23 | PC.NURSE ---
Addendum entered by Anel Melchor RN 06/18/22 21:55: Pt was admitted to M3 at 1902 from [facility] ED on CV for treatment of depression, anxiety. Original Note: Pt was admitted to M3 at 1902 from [facility] ED on CD for treatment of depression, anxiety. Precipitants of admission include friend reporting pt had increased anxiety, depression, panic attacks and erratic behavior. On assessment, pt is A&O, INAD, pleasant and cooperative, responds appropriately to questions, denies SI/HI/AH/VH/safety concerns. Reports anxiety and depression. Depressed mood; flat, restricted affect. Thought process linear. VS at admission: 98.2, 86, 16, 137/76, 100%. Reports eating but sometimes less than three meals daily.? Sleep, interrupted. Focus good. Substance issues: None. Medical issues: Abnormal EKG in ED, however troponins <3.5. C/o needing glasses. Infected sebaceous cyst on back. Safety checks: Q15.
[2022-06-18] MEDS: Nortriptyline HCl 25 MG CAPSULE PO (20:58)
[2022-06-19 08:18] VITALS: BP 133/70; PULSE 75; RESP 18; TEMP 36.6; O2SAT 98
[2022-06-19] MEDS: Omeprazole 20 MG CAPSULE.DR PO (08:20)
[2022-06-19] MEDS: LORazepam 1 MG TABLET PO ×3 (08:20→23:19)
[2022-06-19] MEDS: cloNIDine HCL 0.1 MG TABLET PO (08:20)
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
--- NOTE | 2022-06-19 09:02 | ECG_ITS ---
Test Reason : CHECK QT INTERVAL Blood Pressure : / mmHG Vent. Rate : 074 BPM Atrial Rate : 074 BPM P-R Int : 150 ms QRS Dur : 078 ms QT Int : 378 ms P-R-T Axes : 036 020 020 degrees QTc Int : 419 ms Normal sinus rhythm Normal ECG When compared with ECG of 18-JUN-2022 15:08, No significant change was found Referred By: Dariela Archer Electronically Signed By:WALDO VARGAS MD
[2022-06-19 09:31] LABS: Estimated Average Glucose 111 mg/dL; Hemoglobin A1c % 5.5 %
[2022-06-19 09:39] LABS: Alanine Aminotransferase 45 U/L (0-31); Alkaline Phosphatase 92 U/L (39-117); Anion Gap 14 (12-20); Aspartate Amino Transferase 24 U/L (5-31); Bilirubin Direct 0.2 mg/dL (0.0-0.5); Bilirubin Total 0.4 mg/dL (0.0-1.0); Blood Urea Nitrogen 12 mg/dL (9-16); Calcium 9.3 mg/dL (8.4-10.2); Carbon Dioxide 25 mmol/L (22-29); Chloride 103 mmol/L (96-108); Cholesterol 194 mg/dL; Creatinine Clr Calc Pharmacy 101.7; Estimated Glomerular Filt Rate > 60; Glucose Fasting 113 mg/dL (60-99); HDL Cholesterol 41 mg/dL; LDL Cholesterol Calculated 126 mg/dl; Potassium 4.2 mmol/L (3.3-5.1); Sodium 138 mmol/L (135-145); Total Protein 6.9 g/dL (6.5-8.0); Triglycerides 136 mg/dL
[2022-06-19 10:01] LABS: Thyroid Stimulating Hormone 1.85 uIU/mL (0.32-4.0)
[2022-06-19 10:36] LABS: Folate 8.4 ng/mL (> or = 4.0); Vitamin B12 332 pg/mL (200-900)
[2022-06-19 23:00] VITALS: BP 118/91; PULSE 84; TEMP 37.1; O2SAT 98
[2022-06-19] MEDS: Nortriptyline HCl 25 MG CAPSULE PO (23:18)
[2022-06-20 06:00] VITALS: BP 110/77; PULSE 76; RESP 18; TEMP 36.3; O2SAT 99
[2022-06-20] MEDS: Acetaminophen 325 MG TABLET 650 MG PO ×2 (09:03→20:58)
[2022-06-20] MEDS: LORazepam 1 MG TABLET PO ×3 (09:03→22:58)
[2022-06-20] MEDS: cloNIDine HCL 0.1 MG TABLET PO (09:03)
[2022-06-20] MEDS: Omeprazole 20 MG CAPSULE.DR PO (09:04)
--- NOTE | 2022-06-20 12:17 | P.PNPSI_ITS ---
Subjective Subjective Date of Service: 06/20/22 Reason For Visit: depression Subjective Notes: Conditional Voluntary Interim History: Pt reports feeling less anxious. No SI/HI. She reports sleeping better. No VH/AH. Less depressed. Pt also reports eating well. No behavioral concerns. Medication Compliance: Yes Side effects from medications: No Review of Systems Review of Systems Constitutional : No Fever, No Chills ENT/Mouth : No Ear Pain, No Nasal Congestion, No sore throat Eyes: No Eye Pain, No Swelling, No Redness Cardiovascular : No Chest Pain, No SOB Respiratory : No Cough, No Sputum, No Dyspnea Gastrointestinal : No Nausea, No Vomiting, No Diarrhea, No Hematochezia, No Melena Genitourinary : No Dysuria, No Urinary Frequency, No Hematuria Musculoskeletal : No Myalgias Skin : No Skin Lesions, No rash Neuro : No Weakness, No Numbness, No Paresthesias, No Dizziness, No Headache Psych : positive Anxiety, positive Depression, no SI/HI Heme/Lymph: No Lymphadenopathy Endocrine : No Polyuria, No Polydipsia All other systems reviewed and are negative Mental Status Exam Mental Status Exam Narrative: Appearance: casually groomed, fair hygiene in NAD Behavior:cooperative psychomotor: no agitation or retardation noted Speech: clear, normal rate/rhythm/volume, spontaneous Thought process: linear Thought content: feeling very anxious, depressed. Mood: depressed, very anxious Affect: congruent SI: passive HI: none VH/AH: none Delusions: none Insight/judgment: fair x 3. Memory/cog: alert, oriented x 3. MOCA scored on 06/09 18/30, problems with recall (0/5), attention(1/6) and orientation (4/6). executive function fairly in tact. Diagnostics Vital Signs (24Hr): Vital Signs - 24 hr 06/20/22 22:59 Temperature 98.7 F Pulse Rate 91 Blood Pressure 123/82 Pulse Oximetry 96 Oxygen Delivery Method Room Air BMI result Body Mass Index 34.0 Labs Results: 06/18/22 16:16 06/19/22 08:59 Labs: Laboratory Results - last 48 hr 06/19/22 06/19/22 06/19/22 08:59 08:59 08:59 Sodium 138 Potassium 4.2 Chloride 103 Carbon Dioxide 25 Anion Gap 14 BUN 12 Creatinine 0.71 Estim Creat Clear Calc 101.7 Estimated GFR > 60 Fasting Glucose 113 H Estimat Average Glucose 111 Hemoglobin A1c % 5.5 Calcium 9.3 Total Bilirubin 0.4 Direct Bilirubin 0.2 AST 24 ALT 45 H Alkaline Phosphatase 92 Total Protein 6.9 Albumin 4.0 Triglycerides 136 Cholesterol 194 LDL Cholesterol, Calc 126 HDL Cholesterol 41 Vitamin B12 332 Folate 8.4 TSH 1.85 Medications Medications Current Medications Acetaminophen (Acetaminophen 325 Mg Tablet) 650 mg PO Q6H PRN PRN Reason: Headache/Pain Mild Scale (1-3) Last Admin: 06/20/22 20:58 Dose: 650 mg Al Hydroxide/Mg Hydroxide (Magnesium Hydrox/Alum Hydrox 30 Ml Oral.Susp) 30 ml PO Q6H PRN PRN Reason: Heartburn/Nausea Clonidine HCl (Clonidine Hcl 0.1 Mg Tablet) 0.1 mg PO DAILY [facility]; Protocol Last Admin: 06/21/22 08:49 Dose: 0.1 mg Hydroxyzine HCl (Hydroxyzine Hcl 25 Mg Tablet) 25 mg PO Q6H PRN PRN Reason: Anxiety Last Admin: 06/21/22 02:26 Dose: 25 mg Lorazepam (Lorazepam 1 Mg Tablet) 1 mg PO TID [facility] Last Admin: 06/21/22 08:50 Dose: 1 mg Magnesium Hydroxide (Milk Of Magnesia 30 Ml Oral.Susp) 30 ml PO DAILY PRN PRN Reason: Constipation Nortriptyline HCl (Nortriptyline Hcl 25 Mg Capsule) 25 mg PO BEDTIME [facility] Last Admin: 06/20/22 22:57 Dose: 25 mg Omeprazole (Omeprazole 20 Mg Capsule.Dr) 20 mg PO DAILY@0630 [facility] Last Admin: 06/21/22 08:50 Dose: 20 mg Trazodone HCl (Trazodone Hcl 50 Mg Tablet) 50 mg PO BEDTIME PRN PRN Reason: Insomnia Allergies Allergies Allergy/AdvReac Type Severity Reaction Status Date / Time clonazepam [From Klonopin] Allergy Unknown Verified 06/04/22 14:44 paroxetine [From Paxil] Allergy Unknown Verified 06/04/22 14:44 Assessment & Plan Assessment & Plan (1) MDD (major depressive disorder), recurrent episode, moderate: Status: Acute Code(s): F33.1 - Major depressive disorder, recurrent, moderate (2) MALCOLM (generalized anxiety disorder): Status: Acute Code(s): F41.1 - Generalized anxiety disorder Plan Ms. Padilla is a 52 year-old woman with hx of MDD, MALCOLM. She was discharged from M3 on 06/14. She self presented on 06/17 to [facility] ED reporting increase anxious mood, depression, passive SI. We discussed risks, benefits and alternative page atment options. Pt agrees to continue nortriptyline, ativan. PLAN 1. Admit to M3, CV, sahu warning given and pt shows understanding of it. 15 minutes checks 2. continue nortriptyline, ativan 3. obtain collateral information 4. Aftercare planning. 06/20 increase nortriptyline. continue ativan. I spent minutes with the patient and/or on the patient floor today, great er than?50% of which was spent counseling/coordinating care. Reason for contiued inpatient stay Substantial Risk for: harm to self
--- NOTE | 2022-06-20 18:18 | PC.NURSE ---
Patient has an exiting cysts on her mid-back between her shoulder blades. Pt provided a warm compress at her request x2. No drainage noted, painful to touch.
[2022-06-20] MEDS: Nortriptyline HCl 25 MG CAPSULE PO (22:57)
[2022-06-20 22:59] VITALS: BP 123/82; PULSE 91; TEMP 37.1; O2SAT 96
[2022-06-21] MEDS: hydrOXYzine HCL 25 MG TABLET PO (02:26)
[2022-06-21 06:00] VITALS: BP 119/60; PULSE 86; RESP 16; TEMP 37; O2SAT 100
[2022-06-21 07:00] VITALS: BMI 34.3
[2022-06-21] MEDS: cloNIDine HCL 0.1 MG TABLET PO (08:49)
[2022-06-21] MEDS: Omeprazole 20 MG CAPSULE.DR PO (08:50)
[2022-06-21] MEDS: LORazepam 1 MG TABLET PO ×3 (08:50→21:54)
--- NOTE | 2022-06-21 12:50 | HO.PSYCHPN ---
Subjective Subjective Date of Service: 06/21/22 Reason For Visit: depression Subjective Notes: Conditional Voluntary Interim History: Pt sleeping better, overall feeling less anxious. No SI/HI. less panic attacks. she has been more visible on the unit, social with select peers. she agrees that she is ready fo discharge tomorrow. No behavioral concerns. Medication Compliance: Yes Side effects from medications: No Review of Systems Review of Systems Constitutional : No Fever, No Chills ENT/Mouth : No Ear Pain, No Nasal Congestion, No sore throat Eyes: No Eye Pain, No Swelling, No Redness Cardiovascular : No Chest Pain, No SOB Respiratory : No Cough, No Sputum, No Dyspnea Gastrointestinal : No Nausea, No Vomiting, No Diarrhea, No Hematochezia, No Melena Genitourinary : No Dysuria, No Urinary Frequency, No Hematuria Musculoskeletal : No Myalgias Skin : No Skin Lesions, No rash Neuro : No Weakness, No Numbness, No Paresthesias, No Dizziness, No Headache Psych : positive Anxiety, positive Depression, no SI/HI Heme/Lymph: No Lymphadenopathy Endocrine : No Polyuria, No Polydipsia All other systems reviewed and are negative Mental Status Exam Mental Status Exam Narrative: Appearance: casually groomed, fair hygiene in NAD Behavior:cooperative psychomotor: no agitation or retardation noted Speech: clear, normal rate/rhythm/volume, spontaneous Thought process: linear Thought content: much more future oriented and optimistic Mood: better Affect: congruent, brighter SI: none HI: none VH/AH: none Delusions: none Insight/judgment: fair x 3. Memory/cog: alert, oriented x 3. MOCA scored on 06/09 , problems with recall (0/5), attention(1/6) and orientation (4/6). executive function fairly intact. Diagnostics Vital Signs (24Hr): Vital Signs - 24 hr 06/21/22 06:00 06/21/22 20:15 Temperature 98.6 F 97.1 F Pulse Rate 86 91 Respiratory Rate 16 18 Blood Pressure 119/60 119/75 Pulse Oximetry 100 99 Oxygen Delivery Method Room Air Room Air BMI result Body Mass Index 34.3 Labs Results: 06/18/22 16:16 06/19/22 08:59 Medications Medications Current Medications Acetaminophen (Acetaminophen 325 Mg Tablet) 650 mg PO Q6H PRN PRN Reason: Headache/Pain Mild Scale (1-3) Last Admin: 06/21/22 21:53 Dose: 650 mg Al Hydroxide/Mg Hydroxide (Magnesium Hydrox/Alum Hydrox 30 Ml Oral.Susp) 30 ml PO Q6H PRN PRN Reason: Heartburn/Nausea Clonidine HCl (Clonidine Hcl 0.1 Mg Tablet) 0.1 mg PO DAILY [facility]; Protocol Last Admin: 06/21/22 08:49 Dose: 0.1 mg Hydroxyzine HCl (Hydroxyzine Hcl 25 Mg Tablet) 25 mg PO Q6H PRN PRN Reason: Anxiety Last Admin: 06/21/22 02:26 Dose: 25 mg Lorazepam (Lorazepam 1 Mg Tablet) 1 mg PO TID [facility] Last Admin: 06/21/22 21:54 Dose: 1 mg Magnesium Hydroxide (Milk Of Magnesia 30 Ml Oral.Susp) 30 ml PO DAILY PRN PRN Reason: Constipation Nortriptyline HCl (Nortriptyline Hcl 25 Mg Capsule) 50 mg PO BEDTIME [facility] Last Admin: 06/21/22 21:53 Dose: 50 mg Omeprazole (Omeprazole 20 Mg Capsule.Dr) 20 mg PO DAILY@0630 [facility] Last Admin: 06/21/22 08:50 Dose: 20 mg Trazodone HCl (Trazodone Hcl 50 Mg Tablet) 50 mg PO BEDTIME PRN PRN Reason: Insomnia Allergies Allergies Allergy/AdvReac Type Severity Reaction Status Date / Time clonazepam [From Klonopin] Allergy Unknown Verified 06/04/22 14:44 paroxetine [From Paxil] Allergy Unknown Verified 06/04/22 14:44 Assessment & Plan Assessment & Plan (1) MDD (major depressive disorder), recurrent episode, moderate: Status: Resolved Code(s): F33.1 - Major depressive disorder, recurrent, moderate (2) MALCOLM (generalized anxiety disorder): Status: Acute Code(s): F41.1 - Generalized anxiety disorder Plan Ms. Padilla is a 52 year-old woman with hx of MDD, MALCOLM. She was discharged from on 06/14. She self presented on 06/17 to [facility] [place] reporting increase anxious mood, depression, passive SI. We discussed risks, benefits and alternative treatment options. Pt agrees to continue nortriptyline, ativan. PLAN 1. Admit to , CV, sahu warning given and pt shows understanding of it. 15 minutes checks 2. continue nortriptyline, ativan 3. obtain collateral information 4. Aftercare planning. 06/20 increase nortriptyline. continue ativan. 06/21 continue tx. d/c on 06/22 I spent minutes with the patient and/or on the patient floor today, greater than?50% of which was spent counseling/coordinating care. Reason for contiued inpatient stay Substantial Risk for: stable for discharge
[2022-06-21 20:15] VITALS: BP 119/75; PULSE 91; RESP 18; TEMP 36.2; O2SAT 99
[2022-06-21] MEDS: Nortriptyline HCl 25 MG CAPSULE 50 MG PO (21:53)
[2022-06-21] MEDS: Acetaminophen 325 MG TABLET 650 MG PO (21:53)
--- NOTE | 2022-06-22 05:59 | PM.PSYDC ---
DS: Providers Provider Date of Service: 06/29/22 Date of admission: 06/18/22 18:31 Primary care physician: Unknown Physician DS: Diagnosis Discharge Diagnosis (1) MDD (major depressive disorder), recurrent episode, moderate: Status: Resolved (2) MALCOLM (generalized anxiety disorder): Status: Acute DS: Medications Discharge Medications Home Medications: Previous Rx's Medication Instructions Recorded omeprazole 20 mg capsule,delayed 20 mg PO BID@0630,1630 #60 caps 06/14/22 release clonidine HCl 0.1 mg tablet 0.1 mg PO DAILY #0 tabs 06/22/22 hydroxyzine HCl 25 mg tablet 25 mg PO Q6H PRN Anxiety #30 tabs 06/22/22 lorazepam 1 mg tablet 1 mg PO TID #45 tabs 06/22/22 nortriptyline 25 mg capsule 50 mg PO BEDTIME #30 caps 06/22/22 Mental Status Exam Mental Status Exam Narrative: Appearance: casually groomed, fair hygiene in NAD Behavior:cooperative psychomotor: no agitation or retardation noted Speech: clear, normal rate/rhythm/volume, spontaneous Thought process: linear Thought content: much more future oriented and optimistic Mood: better Affect: congruent, brighter SI: none HI: none VH/AH: none Delusions: none Insight/judgment: fair x 3. Memory/cog: alert, oriented x 3. MOCA scored on 06/09 , problems with recall (0/5), attention(1/6) and orientation (4/6). executive function fairly intact. Data Data Completed and Pending Completed studies during hospitalization [Text1]: 06/16/22 06/16/22 06/18/22 20:52 20:52 16:16 WBC 7.2 RBC 5.24 Hgb 14.3 Hct 43.6 MCV 83.2 MCH 27.3 MCHC 32.8 RDW 13.6 Plt Count 341 MPV 9.0 L Immature Gran % (Auto) 0.1 Neut % (Auto) 54.5 Lymph % (Auto) 38.3 Forrest % (Auto) 4.9 Eos % (Auto) 1.8 Baso % (Auto) 0.4 Lymph # (Auto) 2.8 Forrest # (Auto) 0.4 Eos # (Auto) 0.1 Baso # (Auto) 0.0 Abs Immat Gran (auto) 0.01 Absolute Neuts (auto) 3.9 Absolute Nucleated RBC 0.000 Nucleated RBC % (auto) 0.0 Sodium Potassium Chloride Carbon Dioxide Anion Gap BUN Creatinine Estim Creat Clear Calc Estimated GFR Random Glucose Fasting Glucose Estimat Average Glucose Hemoglobin A1c % Calcium Total Bilirubin Direct Bilirubin AST ALT Alkaline Phosphatase Troponin I High Sens Total Protein Albumin Triglycerides Cholesterol LDL Cholesterol, Calc HDL Cholesterol Vitamin B12 Folate TSH Urine Opiates Screen Not Detected Urine Fentanyl Screen Not Detected Ur Barbiturates Screen Not Detected Ur Phencyclidine Scrn Not Detected Ur Amphetamines Screen Not Detected U Benzodiazepines Scrn Not Detected Urine Cocaine Screen Not Detected U Marijuana (THC) Screen POSITIVE H COVID-19 (ANGEL LUIS) Negative COVID-Vquence See Note 06/18/22 06/18/22 06/19/22 17:25 17:25 08:59 WBC RBC Hgb Hct MCV MCH MCHC RDW Plt Count MPV Immature Gran % (Auto) Neut % (Auto) Lymph % (Auto) Forrest % (Auto) Eos % (Auto) Baso % (Auto) Lymph # (Auto) Forrest # (Auto) Eos # (Auto) Baso # (Auto) Abs Immat Gran (auto) Absolute Neuts (auto) Absolute Nucleated RBC Nucleated RBC % (auto) Sodium 138 138 Potassium 4.3 4.2 Chloride 104 103 Carbon Dioxide 25 25 Anion Gap 13 14 BUN 13 12 Creatinine 0.71 0.71 Estim Creat Clear Calc 101.7 101.7 Estimated GFR > 60 > 60 Random Glucose 92 Fasting Glucose 113 H Estimat Average Glucose Hemoglobin A1c % Calcium 9.2 9.3 Total Bilirubin 0.4 Direct Bilirubin 0.2 AST 24 ALT 45 H Alkaline Phosphatase 92 Troponin I High Sens < 3.5 Total Protein 6.9 Albumin 4.0 Triglycerides 136 Cholesterol 194 LDL Cholesterol, Calc 126 HDL Cholesterol 41 Vitamin B12 Folate TSH 1.85 Urine Opiates Screen Urine Fentanyl Screen Ur Barbiturates Screen Ur Phencyclidine Scrn Ur Amphetamines Screen U Benzodiazepines Scrn Urine Cocaine Screen U Marijuana (THC) Screen COVID-19 ([facility]EL LU[facility]) COVID-Vquence 06/19/22 06/19/22 08:59 08:59 WBC RBC Hgb Hct MCV MCH MCHC RDW Plt Count MPV Immature Gran % (Auto) Neut % (Auto) Lymph % (Auto) Forrest % (Auto) Eos % (Auto) Baso % (Auto) Lymph # (Auto) Forrest # (Auto) Eos # (Auto) Baso # (Auto) Abs Immat Gran (auto) Absolute Neuts (auto) Absolute Nucleated RBC Nucleated RBC % (auto) Sodium Potassium Chloride Carbon Dioxide Anion Gap BUN Creatinine Estim Creat Clear Calc Estimated GFR Random Glucose Fasting Glucose Estimat Average Glucose 111 Hemoglobin A1c % 5.5 Calcium Total Bilirubin Direct Bilirubin AST ALT Alkaline Phosphatase Troponin I High Sens Total Protein Albumin Triglycerides Cholesterol LDL Cholesterol, Calc HDL Cholesterol Vitamin B12 332 Folate 8.4 TSH Urine Opiates Screen Urine Fentanyl Screen Ur Barbiturates Screen Ur Phencyclidine Scrn Ur Amphetamines Screen U Benzodiazepines Scrn Urine Cocaine Screen U Marijuana (THC) Screen COVID-19 ([facility]) COVID-19 Clin Com DS: Summary Hospital Course Hospital Course: Subjective Notes: Arellano Warning and Conditional Voluntary Narrative: Ms. Padilla is a 52 year-old woman with hx of MDD, PTSD self presented [place] [facility] [place] reporting increased anxious mood, depression, passive SI. She was recently discharged from on 06/14- at time of discharge pt still presented at anxious which affected to some extend her decision making (excessive worry about potential side effects of tx for anxiety/depression). However, there was no imminent risk of harm to self or others. Utox positive for cannabinoids. In the ED, pt presents as tearful dysphoric. She reported that she has continued to feel depressed, very anxious. She reports she feels she is burden to the friend who let her stayed with her and to others.? She reports she went to OP appointment with her therapist last week. She reports her insurance did not cover trintellix. She only received ativan and clonidine. She denies VH/AH. On the unit, pt continues to endorse depressed mood. She reports she was able to sleep slightly better with nortriptyline which was started in ED. She reports higher dose of ativan helping her feel much calmer. She continues to report passive SI. She is overwhelmed by multiple stressors such as not having place to live, having to reconnect with new providers. Past Psychiatric History: Inpatient: total of 4, last one about 2 years.? OP: none current. Used to see Dr. Marisela Jones [phone] ? Past trials: paxil (listed as allergy but unclear reaction), ativan ? Suicide attempts: pt reports hx of 3 OD more than 10 years ago. Medical Evaluation Reviewed: Yes HOSPITAL COURSE On the unit, Ms. Padilla was admitted on a CV and placed on 15 minutes checks for safety. Pt was continued on nortriptyline and ativan. Her affect gradually presented as much brighter, less anxious. Her attention was better as her anxiety decreased. No SI/HI. She agreed to continue OP psych services. She return to her friends house and was connected with [facility] worker to work on [facility] housing arrangements. There were no incidents of disruptive behaviors nor use of restraints. Time spent discussing smoking cessation with patient: 3 to 10 minutes Status at Discharge Cognitive/behavioral status at discharge: Pt with brighter affect, non labile. Less anxious, less panic attacks. Her sleep was better. No SI/HI. No VH/AH. Functional status at discharge: independent ambulation Overall status at discharge: patient is progressing back to baseline Time Spent with Patient Time attestation: Total time spent providing and/or coordinating discharge services: Discharge Plan Discharge Anticipated Discharge Date/Time: 06/22/22 09:00 Patient Disposition: Home, Self-Care Discharge Diagnosis: MDD, recurrent, moderate MALCOLM Referrals: Therapist: Anel Collier [Other] - 06/26/22 12:00 pm (TELEHEALTH Your assigned therapist will call your cell phone. ) Medication Provider: Sheila Wayne [Other] - 07/11/22 12:00 pm (IN OFFICE APPOINTMENT) Medication Provider: Sheila Wayne [Other] - 07/13/22 10:30 am (IN OFFICE APPOINTMET) [employer] ([facility]) [Other] - 06/28/22 11:00 am (In office appointment with Arianna - she will conduct your intake and then put you on a waitlist for CSP worker) [facility] [Provider Group] - 1 Week (walk in m-f 830-4) Discharge Medications: New clonidine HCl 0.1 mg Tablet 0.1 mg PO DAILY Qty: 0 0RF Protocol: Hold for SBP< HOLD for SBP < : 90 nortriptyline 25 mg Capsule 50 mg PO BEDTIME Qty: 30 1RF hydroxyzine HCl 25 mg Tablet 25 mg PO Q6H PRN (Reason: Anxiety) Qty: 30 0RF lorazepam 1 mg Tablet 1 mg PO TID Qty: 45 1RF Continued omeprazole 20 mg Capsule,Delayed Release(Dr/Ec) 20 mg PO BID@0630,1630 Qty: 60 0RF Discontinued clonidine HCl 0.1 mg Tablet 0.1 mg PO DAILY Qty: 30 0RF Protocol: Hold for SBP< HOLD for SBP < : 90 acetaminophen 325 mg Tablet 650 mg PO Q6H PRN (Reason: Headache/Pain Mild Scale (1-3)) Qty: 60 0RF ibuprofen 600 mg Tablet 600 mg PO TIDWM PRN (Reason: Pain, Moderate (Pain Scale 4-6) Qty: 60 0RF doxycycline hyclate 100 mg Tablet 100 mg PO Q12H Qty: 8 0RF lorazepam [Ativan] 0.5 mg tablet 0.5 mg PO TID Qty: 90 0RF Discharge Orders: Discharge Order (Routine); Ordered 06/22/22 Ordered By: Julia Michelle Diet: Regular diet Activity on Discharge: As tolerated Stand Alone Forms: Patient Portal Discharge page, Community Support Care Plan Goals: 1. Maintain mood 2. No SI/HI Health Concerns: Follow up with PCP, and OP surgery for back cyst Plan of Treatment: 1. Take medications as prescribed 2. Go to nearest ED or call 911 in event of emergency Assessment: Pt with brighter, non labile affect. No SI/HI. No VH/AH. Future oriented, sleeping and eating well. No signs of aggression towards self or others. Discharge Date/Time: 06/22/22 11:01
[2022-06-22] MEDS: LORazepam 1 MG TABLET PO (08:22)
[2022-06-22] MEDS: Omeprazole 20 MG CAPSULE.DR PO (08:22)
[2022-06-22] MEDS: cloNIDine HCL 0.1 MG TABLET PO (08:22)
--- NOTE | 2022-06-22 12:26 | PC.NURSE ---
Betsy is alert, fully oriented, pleasant and cooperative with care. She denies ideation, plan or intent to harm self or others. She verbalizes understanding of discharge medications and a scheduled appointments. She denies current physical complaint.
== END 2022-06-22 11:01 | disposition home or self-care (01) | DRG 751 ==
LOC: HO.ED 06-18 14:58 → HO.PADLT16 06-18 18:38
PROVIDERS: Student in an Organized Health Care Education/Training Program; Admitting Provider Psychiatry & Neurology Psychiatry; Emergency Provider Emergency Medicine; Visit Provider Social Worker
DX: F33.1 Major depressive disorder, recurrent, moderate (principal); F41.1 Generalized anxiety disorder; Z20.822 Contact with and (suspected) exposure to COVID-19; Z88.8 Allergy status to other drugs, medicaments and biological substances; Z79.899 Other long term (current) drug therapy; Z87.891 Personal history of nicotine dependence
CPT/HCPCS: 36415; 80048; 80053; 80061; 80076; 80307; 82607; 82746; 83036; 84443; 84484; 85025; 87635; 93005; 99285

== ENCOUNTER 2022-07-27 10:31 | Inpatient (IN) | payer OTHER, SELFPAY ==
--- NOTE | 2022-07-27 | ECG_ITS ---
Test Reason : ADMISSION Blood Pressure : / mmHG Vent. Rate : 094 BPM Atrial Rate : 094 BPM P-R Int : 158 ms QRS Dur : 074 ms QT Int : 354 ms P-R-T Axes : 053 037 036 degrees QTc Int : 442 ms Normal sinus rhythm Low voltage QRS Borderline ECG When compared with ECG of 19-JUN-2022 09:09, No significant change was found Referred By: Mya Ro Electronically Signed By:CESAR JANSEN MD
[2022-07-27 10:43] VITALS: BMI 34.3
[2022-07-27 10:52] VITALS: BP 133/84; PULSE 98; RESP 14; TEMP 36.9; O2SAT 93
--- OUTSIDE RECORDS SUMMARY | 2022-07-27 11:05 | XMS_ITS | Continuity of Care Document ---
:1970 Author Organization [facility] Address [address] [place] [address]- Care Team Providers Name Role Phone Not on Staff, PCP Primary Care Physician Unavailable Encounter [facility] Date(s): 07/08/22 - 07/09/22 [facility] [address] [place] [address]- Encounter Diagnosis Back pain (Final) - 07/09/22 Discharge Disposition: A-D/C Home Attending Physician: Ericka Love DO Admitting Physician: Ericka Love DO Referring Physician: Not on Staff, Referring MD Allergies, Adverse Reactions, Alerts Substance Reaction Severity Status Paxil Active KlonoPIN Active Medications lidocaine 5% topical film 1 patch, Topically, Daily, PRN Pain , Mild, for 30 days, remove after 12 hours, # 30 patch, 0 Refills, Acute 08/08/22 5:17:00 EST, 07/09/22 5:17:00 EST, Film, [id number], Partial fill upon patient request if the prescription is for a schedule... Start Date: 07/09/22 Stop Date: 08/08/22 Status: OrderedMorPHINE Immediate Release Tablet 15 mg, Tablet, By Mouth, Once, STAT, 07/09/22 4:21:00 EST, Stop date 07/09/22 4:21:00 EST Start Date: 07/09/22 Stop Date: 07/09/22 Status: Completed Vital Signs Most recent to oldest 1 2 3 [Reference Range]: Weight 90 kg 90 kg (07/08/22 11:28 PM) (07/08/22 11:14 PM) Oxygen Saturation [94-100 100 % 100 % 99 % %] (07/09/22 5:54 AM) (07/09/22 4:36 AM) (07/08/22 11:28 PM) Pulse Rate [55-90 bpm] 87 bpm 73 bpm 85 bpm (07/09/22 5:54 AM) (07/09/22 4:36 AM) (07/08/22 11:28 PM) Blood Pressure 118/78 mm Hg 119/72 mm Hg 124/82 mm Hg [90-138/55-84 mm Hg] (07/09/22 5:54 AM) (07/09/22 4:36 AM) (06/20 11:28 PM) Respiratory Rate [16-30 18 br/min 18 br/min 18 br/mi n br/min] (07/09/22 5:54 AM) (07/09/22 4:36 AM) (07/09/22 4:32 AM) Temperature [96.8-100.4 98.5 DegF 97.7 DegF DegF] (07/08/22 11:28 PM) (07/08/22 11:14 PM) Mode of Delivery (Oxygen) Room air Room air Room a ir (07/09/22 5:54 AM) (07/09/22 4:36 AM) (07/08/22 11:28 PM) Blood pressure sites Arm, left (07/08/22 11:28 PM) Temperature Route Oral Oral (07/08/22 11:28 PM) (07/08/22 11:14 PM) Weight Obtained Via Patient/family stated (07/08/22 11:14 PM) Patient Care team information Care Team PersonnelName: Not on Staff, PCP Position: [facility] Physician (General Medicine) Member Role: PCP Name: Britt Brar Position: [facility] ED TA [facility] Member Role: Favor Maker Name: Billie Barnett RN Position: [facility] ED RN W/OE and Tasks Member Role: Patient Care Provider Name: Jacqueline Jalloh DO Position: [facility] Resident Member Role: ED Resident Address: Address: [address] [place] [address]- Name: Ericka Love DO Position: [facility] ED Medicine MD Member Role: Admitting Physician Address: Address: [address] [place] [address]- Care Team Related PersonsName: MAULIK YORDAN Address: home [address] [place] [address]
--- OUTSIDE RECORDS SUMMARY | 2022-07-27 11:05 | XMS_ITS | Continuity of Care Document ---
:1970 Author Organization [facility] Address [address] [place] [address]- Care Team Providers Name Role Phone Not on Staff, PCP Primary Care Physician Unavailable Encounter [facility] Date(s): 07/10/22 - 07/10/22 [facility] [address] [place] [id number]- Encounter Diagnosis Back pain with sciatica (Final) - 07/10/22 Discharge Disposition: A-D/C Home Attending Physician: Melanie Riley MD Admitting Physician: Melanie Riley MD Referring Physician: Not on Staff, Referring MD Allergies, Adverse Reactions, Alerts Substance Reaction Severity Status Paxil Active KlonoPIN Active Medications gabapentin 100 mg oral capsule 100 mg, 1, capsule, By Mouth, 3 times a day, # 90 capsule, Refills 0, Tot. Refills 0, Maintenance, 07/10/22 17:26:00 EST, Route to Pharmacy Electronically, [facility]/pharmacy #[id number], Partial fill upon patientrequest if the prescription is for a schedule II... Start Date: 07/10/22 Status: Orderedlidocaine 5% topical film 1 patch, Topically, Daily, PRN Pain , Mild, for 30 days, remove after 12 hours, # 30 patch, 0 Refills, Acute 08/08/22 5:17:00 EST, 07/09/22 5:17:00 EST, Film, [facility]/pharmacy #[id number], Partial fill upon patient request if the prescription is for a schedule... Start Date: 07/09/22 Stop Date: 08/08/22 Status: Ordered Vital Signs Most recent to oldest 1 2 3 [Reference Range]: Oxygen Saturation [94-100 100 % 100 % 99 % %] (07/10/22 3:48 PM) (07/10/22 1:15 PM) (07/10/22 10:58 AM) Pulse Rate [55-90 bpm] 85 bpm 77 bpm 77 bpm (07/10/22 3:48 PM) (07/10/22 1:15 PM) (07/10/22 10:58 AM) Blood Pressure 125/83 mm Hg 131/85 mm Hg 150/84 mm Hg [90-138/55-84 mm Hg] (07/10/22 3:48 PM) (07/10/22 1:15 PM) *H* (07/10/22 10:58 AM) Respiratory Rate [16-30 18 br/min 18 br/min 18 br/mi n br/min] (07/10/22 3:48 PM) (07/10/22 1:15 PM) (07/10/22 10:58 AM) Temperature [96.8-100.4 98.2 DegF 98.6 DegF 98.2 Deg F DegF] (07/10/22 3:48 PM) (07/10/22 1:15 PM) (07/10/22 10:58 AM) Mode of Delivery (Oxygen) Room air Room air Room a ir (07/10/22 3:48 PM) (07/10/22 1:15 PM) (07/10/22 10:58 AM) Blood pressure sites Arm, right Arm, right Arm, right (07/10/22 3:48 PM) (07/10/22 1:15 PM) (07/10/22 10:58 AM) Temperature Route Oral Oral Oral (07/10/22 3:48 PM) (07/10/22 1:15 PM) (07/10/22 10:58 AM) Note Beth Oliver: PERFORM Event Display: Patient Education Leaflets Authored Date: Back Pain (Acute or Chronic) ?? [id number] Back Pain (Acute or Chronic) Back pain is one of the most common problems. The good news is that most people feel better in 1 to2 weeks, and most of the rest in 1 to 2 months. Most people can remain active. People who have pain??describe it differently???not??everyone is the same. ??? The pain can be sharp, stabbing, shooting, aching, cramping or burning. ??? Movement, standing,bending, lifting, sitting, or walking may worsen pain. ??? It can be limited to one spot or area, delilah can be more generalized. ??? It can spread upwards, to the front, or go down your arms or legs (sciatica). ??? It can cause muscle spasm. Most of the time, mechanical problems with the muscles??or spine cause the pain. Mechanical problems??are usually caused by an injury to the muscles or ligaments. Illness can cause back pain, but it'susually not caused by a serious illness. Mechanical problems include:? Physical activity such as sports, exercise, work, or normal activity ??? Overexertion, lifting,pushing, pulling incorrectly or too aggressively ??? Sudden twisting, bending, or stretching from anaccident, or accidental movement ??? Poor posture ??? Stretching or moving wrong, without noticing pain at the time ??? Poor coordination, lack of regular exercise (check with your doctor about this) ??? Spinal disc disease or arthritis ??? Stress Pain can also be related to , or illness such as appendicitis, bladder or kidney infections, kidney stones, and pelvic infections. Acute back pain usually gets better in??1 to 2 weeks. Back pain related to disk disease, arthritis in the spinal joints, or narrowing of the spinal canal (spinal stenosis) can become chronic and last for months or years. Unless you had a physical injury such as a car accident or fall, X-rays are usually not needed for the first assessment of back pain. If pain continues and does not respond to medical treatment, you may need X-rays and other tests. Home care Try this home care advice: ??? When in bed, try??to find a position of comfort. A firm mattress is best. Try lying flat on your back with pillows under your knees. You can also try lying on your side with your knees bent up toward your chest and a pillow between your knees. ??? At first, don't try to stretch out the sore spots. If there is a strain, it's not like the good soreness you get after exercising without an injury. In this case, stretching may make it worse. ??? Don't sit for long periods, as in a long car ride or during other??travel. This puts more stress on the lower back than standing or walking. ??? During thefirst 24 to 72 hours after an acute injury or flare up of chronic back pain, apply an ice pack to the painful area for 20 minutes and then remove it for 20 minutes. Do this over a period of 60 to 90 minutes or several times a day. This will reduce swelling and pain. Wrap the ice pack in a thin towel or plastic to protect your skin. ??? You can start with ice, then switch to heat. Heat (hot shower, hot bath, or heating pad) reduces pain and works well for muscle spasms. Heat can be applied to the painful area for 20 minutes then remove it for 20 minutes. Do this over a period of 60 to 90 minutes or several times a day. Don't sleep on a heating pad. It can lead to skin santana or tissue damage. ??? You can alternate ice and heat therapy. Talk with your doctor about??the best treatment for your back pain. ??? Therapeutic massage can help relax the back muscles without stretching them. ??? Be aware ofsafe lifting methods. Don't lift anything without stretching first. Medicines Talk to your doctor before using medicine, especially if you have other medical problems or are taking other medicines. ??? You may use mcgc-eas-avrytfu medicine as directed on the bottle to control pain, unless another pain medicine was prescribed. Talk with your healthcare provider before using these medicines if you have chronic conditions such as diabetes, liver or kidney disease, stomach ulcers, or digestive bleeding. Also talk with your provider if you take blood thinners. ??? Be careful if you are given a prescription medicines, narcotics, or medicine for muscle spasms. They can cause drowsiness, affect your coordination, reflexes, and judgment. Don't drive or operate heavy machinery. ?? Follow-up care Follow up with your healthcare provider, or as advised.?? If X-rays were taken, you will be told of any new findings that may affect your care. ?? Call 911 Call 911 if any of the following occur: ??? Trouble breathing ??? Confusion ??? Very drowsy or trouble awakening ??? Fainting or loss of consciousness ??? Rapid or very slow heart rate ??? Loss of bowel or bladder control ?? When to seek medical advice Call your healthcare provider right away if any of these occur:? Pain gets worse or spreads toyour legs ??? Your bowel or bladder control changes ??? Fever ??? Blood in your urine ??? Weakness or numbness in one or both legs ??? Numbness in the groin or genital area ?? Last Reviewed Date: 2021 ?? [id number] [employer]. All rights reserved. This information is not intended as a substitute for professional medical care. Always follow your healthcare professional's instructions. ??Corin SÁNCHEZ, Beth Ramirez: PERFORM Event Display: Patient Education Leaflets Authored Date: [id number] Physical Therapy Referral ?? 250 ?? This page is FOR PRESCRIBERS Only, ? DO NOT GIVE TO THE PATIENT? Physical Therapy Referral Program for Management of Pain In an effort to reduce narcotic use, some of our ED patients will benefit from a direct referral torab care.?? [facility] [place] will see INSURED patients and has a system in place to avoid sending follow up paperwork to the ED prescribers.? Note: Non-[facility] physical therapy services will probably NOT be able to handle ED generated PT referrals. ?? Patients should still follow up with their PCP as soon as possible regarding their ongoing care. Inform patients that [facility] Re[facility] care will discuss insurance when they call.?? Some insurance plans limit the amount of PT a patient can receive each year. ?? Complete the FIRST PAGE of the patient???s referral sheet. [place] or write in diagnosis Modify the timing for treatment, if needed List any major precautions (i.e.?? Non-weight bearing limb), if needed Sign, date and print your name at the bottom ? Physical Therapy Referral Form Patient Instructions: You are being referred to physical therapy.?? This form is your referral and MUST be brought to your appointment. You need to call to set up your appointment. ?? This form can be used at any [facility] Physical Therapy location.?? A list of locations is attached.?? 1)?? DIAGNOSIS/ICD-10 ([place] one) Cervicalgia: M54.2 ? Strain of muscle, fascia and tendon at neck level: S16.1XXD? Radiculopathy, cervical region: M54.12? Mid back pain: M54.9 ? Low back pain:?? M54.5 Strain of muscle, fascia and tendon of lower back: S39.012D Radiculopathy, lumbosacral region: M54.17 Other:? 2)? [? ]? Evaluate and Treat 2 Times/Week for 4 weeks as needed [? ]?Other: 3)? [? ]? No Precautions [? ]?Precautions: ?? I hereby certify these services as medically necessary for the patient???s plan of care. Physician???s Signature Date Physician Name (printed)? Locations You can call any location below.?? Tell them you were seen in a [facility] Emergency Department and have a referral form.?? Remember to bring your referral form with you to the appointment. [facility] [place] [address]? [place] [address], [address]? [address] Phone: [phone]? [place] [address]? [place] [address]? [address] ? [place] [address]? [place] [address] [address]? [address] ? [place] [address]? [place] [address]? [address]? [facility] ? [address] ? Patient Care team information Care Team PersonnelName: Not on Staff, PCP Position: [facility] Physician (General Medicine) Member Role: PCP Name: Beth Oliver Position: [facility] Associate Professional Member Role: ED Physician Aco Coordinator Address: Address: [address] [place] [address] Name: Melanie Riley MD Position: [facility] ED Medicine MD Member Role: Admitting Physician Address: Address: [address] [place] [address] Name: Savanna Collins RN Position: [facility] ED RN W/OE and Tasks Member Role: Patient Care Provider Care Team Related PersonsName: YORDAN WILLINGHAM Address: [place] [address]
--- NOTE | 2022-07-27 11:50 | ED_ITS ---
HPI - Psych General Chief Complaint: Psychiatric Symptoms Stated Complaint: Crisis Time Seen by Provider: 07/27/22 10:57 Source: patient Mode of arrival: ambulatory Limitations: no limitations History of Present Illness HPI Narrative: 52-year-old female with a history of anxiety, depression, chronic back pain secondary to sciatica presents with complaints of feeling anxious, depressed and suicidal. Patient denies any plan. No homicidal ideations. No hallucinations. Patient reports she has been living in a half-way in the last month and does not like living there Related Data Home Medications Medication Instructions Recorded Confirmed gabapentin 100 mg capsule 1 cap PO TID 07/27/22 07/27/22 lorazepam 1 mg tablet 1 mg PO TID PRN Anxiety 07/27/22 07/27/22 methocarbamol 750 mg tablet 1 tab PO Q6H PRN Muscle Spasm 07/27/22 07/27/22 Previous Rx's Medication Instructions Recorded omeprazole 20 mg capsule,delayed 20 mg PO BID@0630,1630 #60 caps 06/14/22 release nortriptyline 25 mg capsule 50 mg PO BEDTIME #30 caps 06/22/22 Allergies Allergy/AdvReac Type Severity Reaction Status Date / Time clonazepam [From Klonopin] Allergy Unknown Verified 06/04/22 14:44 paroxetine [From Paxil] Allergy Unknown Verified 06/04/22 14:44 Review of Systems Review of Systems: Yes all other systems are reviewed and are negative Constitutional: Constitutional: Reports no additional constitutional complaints, Denies body ache(s), Denies chills, Denies fever(s), Denies headache(s) and Denies weakness Eyes: Eyes: Reports no additional eye complaints and Denies change in vision ENT: Reports system reviewed and no additional complaints, except as documented, Denies dizziness, Denies headache(s), Denies nasal congestion, Denies nasal discharge and Denies neck pain Cardiovascular: Cardiovascular: Reports no additional cardiovascular complaints, Denies chest pain, Denies leg edema and Denies dyspnea Respiratory: Respiratory: Reports no additional respiratory complaints, Denies cough and Denies dyspnea Gastrointestinal: Gastrointestinal: Reports no additional gastrointestinal complaints, Denies abdominal pain, Denies diarrhea, Denies nausea and Denies vomiting Genitourinary: Genitourinary: Reports no additional female genitourinary co mplaints and Denies urinary incontinence Musculoskeletal: Musculoskeletal: Reports no additional musculoskeletal complaints, Denies back pain, Denies arthralgias, Denies joint swelling, Denies neck pain, Denies numbness and Denies tingling Integumentary/Breasts: Skin/Breast: Reports system reviewed and no additional complaints, except as docu and Denies rash Neurologic: Reports system reviewed and no additional complaints, except as documented, Denies Abnormal speech present, Denies dizziness, Denies headache(s), Denies numbness, Denies tingling and Denies weakness Psychiatric: Psychiatric: Reports anxiety, Reports depression and Reports suicidal ideation [facility] Past Medical History Attestation statement: The following information was validated with the patient. Source: old records reviewed and nursing notes reviewed Medical History MDD (major depressive disorder), recurrent episode, moderate Social History Social History Household Members: Friend(s) Household Members Other:: Lives with friend and friend's daughter. Housing: Apartment Housing Other:: Staying with friend Do you presently have visiting nurse or other home services: No Alcohol intake: never Patient Tobacco Use Status: Never used Tobacco Tobacco use type: Cigarette Years Smoked: 35 years Smoked in Last 30 Days: No e-Cigarette/Vaping Use: Never Used Second Hand Smoke Exposure: No Use of substances other than those prescribed or required for medical reasons: No Substance Use Type: Marijuana Advance Directives: No service: No Sexual orientation: Don't Know Physical Exam Vital Signs: Vital Signs: Last Vital Signs Temp 98.3 F 07/27/22 15:19 Pulse 112 H 07/27/22 15:19 Resp 18 07/27/22 15:19 BP 115/80 07/27/22 15:19 Pulse Ox 99 07/27/22 15:19 O2 Del Method 07/27/22 15:19 BMI result Body Mass Index 34.3 Const: General: cooperative, healthy appearing, comfortable and no acute distress Orientation/consciousness: patient oriented x3 Limitations: no limitations HEENT: Head: Yes normal to inspection Ears: hearing grossly normal bilaterally General nose exam: Normal external nose present Face and sinus: Yes normal facial exam Mouth: Normal oral and palatal mucosa present Throat: Yes posterior oropharynx normal Eyes: General: appearance normal, both eyes and all related structures Pupils: Equal, round and reactive pupils present Neck: Neck: Yes normal visual inspection Chest: Chest palpation & inspection: normal inspection of the chest Resp: Effort & Inspection: normal respiratory effort Auscultation: clear to auscultation bilaterally Cardio: Rate: regular rate Rhythm: regular rhythm Peripheral pulses: Peripheral pulses 2+ throughout GI: Inspection: Yes normal to inspection Palpation (GI): Soft to palpation and nontender Auscultation: normal bowel sounds Back/Spine/Pelvis: Thoracic/Lumbar Spine: thoracic and lumbar spine normal to inspection Skin: General skin exam: no rashes or lesions noted Neuro: General: patient oriented x3, no focal motor deficits and normal sensation to monofilament Cranial nerves: Yes CN's II-XII intact bilaterally and Yes Equal, round and reactive pupils present Cognition (Neuro): normal cognition Speech: No Abnormal speech present Gait exam (Neuro): Normal gait present Motor exam (neuro): 5/5 motor strength present throughout Extrem: General: Yes normal to inspection Course Course Course Narrative: Reviewed labs which are unremarkable. No concern for acute ingestion or trauma. Patient placed in physician observation pending disposition Reevaluation(s) Reevaluation #1: Patient seen by care team. Plan for inpatient admission to Medications Administered Discontinued Medications Generic Name Dose Route Start Last Admin Trade Name Freq PRN Reason Stop Dose Admin Lorazepam 2 mg 07/27/22 11:29 07/27/22 12:09 Lorazepam 1 Mg Tablet PO 07/27/22 11:30 2 mg ONCE ONE Administration Medical Decision Making Medical Decision Making [facility] Narrative: 52-year-old female with history of anxiety, depression presents with complaints of suicidal thoughts and increasing depression. No plan. No concern for acute ingestion or trauma. Patient will have labs, drug screen, COVID screen and a crisis consultation. Discharge Plan Discharge Clinical Impression: Depression Patient Disposition: Admitted As Inpatient Interventions: Anabel-Suicide Risk Severity Scale Last Done: 07/27/22 10:48 Admission Worksheet (ED) Last Done: 07/27/22 16:56
[2022-07-27] MEDS: LORazepam 1 MG TABLET 2 MG PO (12:09)
[2022-07-27 12:49] LABS: MANUAL DIFF FLAG NO
[2022-07-27 12:51] LABS: Basophils Percent Auto 0.6 % (0-2); Eosinophils Absolute Auto 0.1 X10*3/uL (0.0-0.4); Eosinophils Percent Auto 1.7 % (0-4); Hematocrit 41.7 % (37.0-47.0); Hemoglobin 13.9 g/dl (12.0-16.0); Imm Gran Abs Auto 0.02 X10*3/uL (0.00-0.03); Imm Gran Pct Auto 0.3 % (0.0-0.4); Lymphocytes Percent Auto 28.2 % (20-40); Mean Corpuscular HGB Conc 33.3 g/dl (31.0-35.0); Mean Corpuscular Hemoglobin 27.8 pg (27.0-33.0); Mean Corpuscular Volume 83.4 fL (80.0-98.0); Mean Platelet Volume 9.2 fL (9.4-12.3); Monocytes Absolute Auto 0.3 X10*3/uL (0.1-1.2); Monocytes Percent Auto 4.5 % (2-11); Neutrophils Absolute Auto 4.6 x10*3/uL (2.0-8.3); Neutrophils Percent Auto 64.7 % (45-73); Platelet Count 357 X10*3/uL (160-400); Red Cell Distribution Width 14.1 % (11.0-16.0); White Blood Count 7.1 X10*3/uL (4.8-10.8)
[2022-07-27 13:06] LABS: IDNOW Serial# 16C4AD1C
[2022-07-27 13:07] LABS: COVID-19 Test Negative (Negative)
[2022-07-27 13:09] LABS: Amphetamine Screen Urine Not Detected (Not Detect); Barbiturates, Urine Not Detected (Not Detect); Benzodiazepines Screen Urine Not Detected (Not Detect); Cannabinoid Screen Urine POSITIVE (Not Detect); Cocaine Screen Urine Not Detected (Not Detect); Fentanyl, urine Not Detected (Not Detect); Opiate Screen Urine Not Detected (Not Detect); Phencyclidine Screen Urine Not Detected (Not Detect)
[2022-07-27 13:20] LABS: Alanine Aminotransferase 34 U/L (0-31); Albumin Level 4.2 g/dL (3.5-5.0); Alkaline Phosphatase 89 U/L (39-117); Anion Gap 12 (12-20); Aspartate Amino Transferase 29 U/L (5-31); Bilirubin Direct < 0.2 mg/dL (0.0-0.5); Bilirubin Total 0.3 mg/dL (0.0-1.0); Blood Urea Nitrogen 14 mg/dL (9-16); Calcium 9.4 mg/dL (8.4-10.2); Carbon Dioxide 26 mmol/L (22-29); Chloride 105 mmol/L (96-108); Creatinine Clr Calc Pharmacy 106.8; Estimated Glomerular Filt Rate > 60; Ethanol < 10 mg/dL; Glucose Random 92 mg/dL (60-115); Potassium 4.5 mmol/L (3.3-5.1); Sodium 138 mmol/L (135-145); Total Protein 7.3 g/dL (6.5-8.0)
[2022-07-27 15:19] VITALS: BP 115/80; PULSE 112; RESP 18; TEMP 36.8; O2SAT 99
--- NOTE | 2022-07-27 16:53 | PHA.MEDREC ---
Pharmacy Consult ? Medication Reconciliation Pharmacy has completed the medication reconciliation.
[2022-07-27 17:13] VITALS: BP 141/78; PULSE 100; RESP 18; TEMP 36.8; O2SAT 99
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
[2022-07-27 22:35] VITALS: BP 129/77; PULSE 94; RESP 18; TEMP 36.8; O2SAT 96
[2022-07-27] MEDS: Cyclobenzaprine HCl 10 MG TABLET PO (22:42)
[2022-07-27] MEDS: hydrOXYzine HCL 25 MG TABLET PO (22:42)
[2022-07-28] MEDS: Omeprazole 20 MG CAPSULE.DR PO ×2 (07:23→16:45)
[2022-07-28 08:32] LABS: Estimated Average Glucose 123 mg/dL; Hemoglobin A1c % 5.9 %
[2022-07-28 08:45] LABS: Alanine Aminotransferase 28 U/L (0-31); Albumin Level 3.9 g/dL (3.5-5.0); Alkaline Phosphatase 77 U/L (39-117); Anion Gap 14 (12-20); Aspartate Amino Transferase 22 U/L (5-31); Bilirubin Total 0.4 mg/dL (0.0-1.0); Blood Urea Nitrogen 13 mg/dL (9-16); Calcium 9.8 mg/dL (8.4-10.2); Carbon Dioxide 26 mmol/L (22-29); Chloride 103 mmol/L (96-108); Cholesterol 190 mg/dL; Creatinine Clr Calc Pharmacy 106.8; Estimated Glomerular Filt Rate > 60; Glucose Fasting 102 mg/dL (60-99); HDL Cholesterol 39 mg/dL; LDL Cholesterol Calculated 133 mg/dl; Potassium 4.6 mmol/L (3.3-5.1); Sodium 138 mmol/L (135-145); Total Protein 6.6 g/dL (6.5-8.0); Triglycerides 91 mg/dL
[2022-07-28] MEDS: LORazepam 1 MG TABLET PO ×3 (09:16→21:54)
[2022-07-28] MEDS: Gabapentin 100 MG CAPSULE PO ×3 (09:16→21:54)
[2022-07-28 09:20] VITALS: BP 99/54; PULSE 79; RESP 16; TEMP 36.6; O2SAT 97
--- NOTE | 2022-07-28 14:03 | P.PNPSI_ITS ---
Subjective Subjective Date of Service: 07/28/22 Reason For Visit: Crisis Medical Problems Affecting Mental Status: No Interim History: Met with patient. Discussed with Nursing. Chart reviewed. Overall patient described 3rd admission in the last couple of months. Reports now feeling better compared to a couple of days ago when she felt overwhelmed, depressed, anxious and suicidal. Reported that I had a moment and is no longer suicidal. Reports feeling more relaxed and peaceful here. Feeling supported. Less hopeless. Reports that she is a 3 time suicide survivor and is prepared to engage and work hard regarding well-being and recovery Medication Compliance: Yes Side effects from medications: No Attending Groups: Yes Review of Systems Acute medical concerns: No Review of Systems Review of Systems Unremarkable Mental Status Exam Mental Status Exam Narrative: Pleasant. Engaged. Hospital clothing. Fair hygiene. Slightly pressured speech. Some anxiety. Denied current depression. No SI. No HI. No agitation or psychosis. Insight and judgment fair Diagnostics Vital Signs (24Hr): Vital Signs - 24 hr 07/27/22 15:19 07/27/22 17:13 07/27/22 22:35 Temperature 98.3 F 98.2 F 98.2 F Pulse Rate 112 H 100 94 Respiratory Rate 18 18 18 Blood Pressure 115/80 141/78 H 129/77 Pulse Oximetry 99 99 96 Oxygen Delivery Method Room Air Room Air Room Air 07/28/22 09:20 Temperature 97.9 F Pulse Rate 79 Respiratory Rate 16 Blood Pressure 99/54 L Pulse Oximetry 97 Oxygen Delivery Method Room Air BMI result Body Mass Index 34.3 Labs Results: 07/27/22 12:43 07/28/22 07:47 Labs: Laboratory Results - last 48 hr 07/27/22 07/27/22 07/27/22 12:43 12:43 12:43 WBC 7.1 RBC 5.00 Hgb 13.9 Hct 41.7 MCV 83.4 MCH 27.8 MCHC 33.3 RDW 14.1 Plt Count 357 MPV 9.2 L Immature Gran % (Auto) 0.3 Neut % (Auto) 64.7 Lymph % (Auto) 28.2 [place] % (Auto) 4.5 Eos % (Auto) 1.7 Baso % (Auto) 0.6 Lymph # (Auto) 2.0 [place] # (Auto) 0.3 Eos # (Auto) 0.1 Baso # (Auto) 0.0 Abs Immat Gran (auto) 0.02 Absolute Neuts (auto) 4.6 Absolute Nucleated RBC 0.000 Nucleated RBC % (auto) 0.0 Sodium 138 Potassium 4.5 Chloride 105 Carbon Dioxide 26 Anion Gap 12 BUN 14 Creatinine 0.68 Estim Creat Clear Calc 106.8 Estimated GFR > 60 Random Glucose 92 Fasting Glucose Estimat Average Glucose Hemoglobin A1c % Calcium 9.4 Total Bilirubin 0.3 Direct Bilirubin < 0.2 AST 29 ALT 34 H Alkaline Phosphatase 89 Total Protein 7.3 Albumin 4.2 Triglycerides Cholesterol LDL Cholesterol, Calc HDL Cholesterol Urine Opiates Screen Urine Fentanyl Screen Ur Barbiturates Screen Ur Phencyclidine Scrn Ur Amphetamines Screen U Benzodiazepines Scrn Urine Cocaine Screen U Marijuana (THC) Screen Ethyl Alcohol < 10 COVID-19 ([facility]) Negative COVID-19 [employer] Com See Note 07/27/22 07/28/22 07/28/22 12:43 07:47 07:47 WBC RBC Hgb Hct MCV MCH MCHC RDW Plt Count MPV Immature Gran % (Auto) Neut % (Auto) Lymph % (Auto) [place] % (Auto) Eos % (Auto) Baso % (Auto) Lymph # (Auto) [place] # (Auto) Eos # (Auto) Baso # (Auto) Abs Immat Gran (auto) Absolute Neuts (auto) Absolute Nucleated RBC Nucleated RBC % (auto) Sodium 138 Potassium 4.6 Chloride 103 Carbon Dioxide 26 Anion Gap 14 BUN 13 Creatinine 0.68 Estim Creat Clear Calc 106.8 Estimated GFR > 60 Random Glucose Fasting Glucose 102 H Estimat Average Glucose 123 Hemoglobin A1c % 5.9 Calcium 9.8 Total Bilirubin 0.4 Direct Bilirubin AST 22 ALT 28 Alkaline Phosphatase 77 Total Protein 6.6 Albumin 3.9 Triglycerides 91 Cholesterol 190 LDL Cholesterol, Calc 133 HDL Cholesterol 39 Urine Opiates Screen Not Detected Urine Fentanyl Screen Not Detected Ur Barbiturates Screen Not Detected Ur Phencyclidine Scrn Not Detected Ur Amphetamines Screen Not Detected U Benzodiazepines Scrn Not Detected Urine Cocaine Screen Not Detected U Marijuana (THC) Screen POSITIVE H Ethyl Alcohol COVID-19 ([facility]) COVID-19 Clin Com Medications Medications Current Medications Acetaminophen (Acetaminophen 325 Mg Tablet) 650 mg PO Q6H PRN PRN Reason: Headache/Pain Mild Scale (1-3) Al Hydroxide/Mg Hydroxide (Magnesium Hydrox/Alum Hydrox 30 Ml Oral.Susp) 30 ml PO Q6H PRN PRN Reason: Heartburn/Nausea Cyclobenzaprine HCl (Cyclobenzaprine Hcl 10 Mg Tablet) 10 mg PO TID PRN PRN Reason: Muscle Spasm Last Admin: 07/27/22 22:42 Dose: 10 mg Gabapentin (Gabapentin 100 Mg Capsule) 100 mg PO TID [facility] Last Admin: 07/28/22 09:16 Dose: 100 mg Hydroxyzine HCl (Hydroxyzine Hcl 25 Mg Tablet) 25 mg PO Q6H PRN PRN Reason: Anxiety Last Admin: 07/27/22 22:42 Dose: 25 mg Lorazepam (Lorazepam 1 Mg Tablet) 1 mg PO TID [facility] Last Admin: 07/28/22 09:16 Dose: 1 mg Magnesium Hydroxide (Milk Of Magnesia 30 Ml Oral.Susp) 30 ml PO DAILY PRN PRN Reason: Constipation Nortriptyline HCl (Nortriptyline Hcl 25 Mg Capsule) 50 mg PO BEDTIME [facility] Omeprazole (Omeprazole 20 Mg Capsule.Dr) 20 mg PO BID@0630,1630 [facility] Last Admin: 07/28/22 07:23 Dose: 20 mg Pharmacy Consult (Consult Rx Perform Med Rec) 1 each MISCELLANE ONCE PRN PRN Reason: Consult order Allergies Allergies Allergy/AdvReac Type Severity Reaction Status Date / Time clonazepam [From Klonopin] Allergy Unknown Verified 06/04/22 14:44 paroxetine [From Paxil] Allergy Unknown Verified 06/04/22 14:44 Assessment & Plan Assessment & Plan (1) MDD (major depressive disorder), recurrent episode, moderate: Status: Acute Code(s): F33.1 - Major depressive disorder, recurrent, moderate (2) MALCOLM (generalized anxiety disorder): Status: Acute Code(s): F41.1 - Generalized anxiety disorder Plan Ms. Padilla is a 52 year-old woman with hx of MDD, PTSD, MALCOLM who self presented to [facility] reporting increase depression, suicidal ideation with no plan in context of not having stable place to live and no supports. We discussed risks, benefits and alternative treatment options. Pt agreed to continue nortiptyline, ativan. PLAN 1. Admit to M3 , cv 15 minutes checks for safety 2. Continue medications 3. Aftercare planning. 07/28/2022: No changes to current treatment plan. I spent minutes with the patient and/or on the patient floor today, greater than?50% of which was spent counseling/coordinating care. Reason for contiued inpatient stay Substantial Risk for: harm to self
[2022-07-28] MEDS: hydrOXYzine HCL 25 MG TABLET PO (21:54)
[2022-07-28] MEDS: Acetaminophen 325 MG TABLET 650 MG PO (21:54)
[2022-07-28] MEDS: Nortriptyline HCl 25 MG CAPSULE 50 MG PO (21:54)
[2022-07-28 21:55] VITALS: BP 122/71; PULSE 102; RESP 20; TEMP 36.9; O2SAT 95
[2022-07-28] MEDS: Cyclobenzaprine HCl 10 MG TABLET PO (21:55)
[2022-07-29] MEDS: Omeprazole 20 MG CAPSULE.DR PO ×2 (07:15→17:56)
[2022-07-29 09:00] VITALS: BP 111/59; PULSE 102; RESP 16; TEMP 36.4; O2SAT 98
[2022-07-29] MEDS: Gabapentin 100 MG CAPSULE PO ×3 (09:43→21:27)
[2022-07-29] MEDS: LORazepam 1 MG TABLET PO ×3 (09:43→21:22)
--- NOTE | 2022-07-29 13:50 | HO.PSYCHPN ---
Subjective Subjective Date of Service: 07/29/22 Reason For Visit: Depression Interim History: Met with patient. Discussed with Nursing. Chart reviewed. Patient continues to report feeling a lot of relief with less depression and anxiety. Talked about [facility] and how she was upset at how things are manage there. Feels well supported in the hospital. Reports good sleep. No medication concerns. Attending groups. No SI. Medication Compliance: Yes Side effects from medications: No Attending Groups: Yes Review of Systems Acute medical concerns: No Review of Systems Review of Systems Unremarkable Mental Status Exam Mental Status Exam Narrative: Pleasant. Engaged. Hospital clothing. Fair hygiene. Less pressured speech. Less anxiety. Denied current depression. No SI. No HI. No agitation or psychosis. Insight and judgment fair Diagnostics Vital Signs (24Hr): Vital Signs - 24 hr 07/28/22 21:55 07/29/22 09:00 Temperature 98.5 F 97.6 F Pulse Rate 102 H 102 H Respiratory Rate 20 16 Blood Pressure 122/71 111/59 L Pulse Oximetry 95 98 Oxygen Delivery Method Room Air Room Air BMI result Body Mass Index 34.3 Labs Results: 07/27/22 12:43 07/28/22 07:47 Labs: Laboratory Results - last 48 hr 07/28/22 07/28/22 07:47 07:47 Sodium 138 Potassium 4.6 Chloride 103 Carbon Dioxide 26 Anion Gap 14 BUN 13 Creatinine 0.68 Estim Creat Clear Calc 106.8 Estimated GFR > 60 Fasting Glucose 102 H Estimat Average Glucose 123 Hemoglobin A1c % 5.9 Calcium 9.8 Total Bilirubin 0.4 AST 22 ALT 28 Alkaline Phosphatase 77 Total Protein 6.6 Albumin 3.9 Triglycerides 91 Cholesterol 190 LDL Cholesterol, Calc 133 HDL Cholesterol 39 Medications Medications Current Medications Acetaminophen (Acetaminophen 325 Mg Tablet) 650 mg PO Q6H PRN PRN Reason: Headache/Pain Mild Scale (1-3) Last Admin: 07/28/22 21:54 Dose: 650 mg Al Hydroxide/Mg Hydroxide (Magnesium Hydrox/Alum Hydrox 30 Ml Oral.Susp) 30 ml PO Q6H PRN PRN Reason: Heartburn/Nausea Cyclobenzaprine HCl (Cyclobenzaprine Hcl 10 Mg Tablet) 10 mg PO TID PRN PRN Reason: Muscle Spasm Last Admin: 07/28/22 21:55 Dose: 10 mg Gabapentin (Gabapentin 100 Mg Capsule) 100 mg PO TID [facility] Last Admin: 07/29/22 09:43 Dose: 100 mg Hydroxyzine HCl (Hydroxyzine Hcl 25 Mg Tablet) 25 mg PO Q6H PRN PRN Reason: Anxiety Last Admin: 07/28/22 21:54 Dose: 25 mg Lorazepam (Lorazepam 1 Mg Tablet) 1 mg PO TID [facility] Last Admin: 07/29/22 09:43 Dose: 1 mg Magnesium Hydroxide (Milk Of Magnesia 30 Ml Oral.Susp) 30 ml PO DAILY PRN PRN Reason: Constipation Nortriptyline HCl (Nortriptyline Hcl 25 Mg Capsule) 50 mg PO BEDTIME [facility] Last Admin: 07/28/22 21:54 Dose: 50 mg Omeprazole (Omeprazole 20 Mg Capsule.Dr) 20 mg PO BID@0630,1630 [facility] Last Admin: 07/29/22 07:15 Dose: 20 mg Pharmacy Consult (Consult Rx Perform Med Rec) 1 each MISCELLANE ONCE PRN PRN Reason: Consult order Allergies Allergies Allergy/AdvReac Type Severity Reaction Status Date / Time clonazepam [From Klonopin] Allergy Unknown Verified 06/04/22 14:44 paroxetine [From Paxil] Allergy Unknown Verified 06/04/22 14:44 Assessment & Plan Assessment & Plan (1) MDD (major depressive disorder), recurrent episode, moderate: Status: Acute Code(s): F33.1 - Major depressive disorder, recurrent, moderate (2) MALCOLM (generalized anxiety disorder): Status: Acute Code(s): F41.1 - Generalized anxiety disorder Plan Ms. Padilla is a 52 year-old woman with hx of MDD, PTSD, MALCOLM who self presented to [facility] ED reporting increase depression, suicidal ideation with no plan in context of not having stable place to live and no supports. We discussed risks, benefits and alternative treatment options. Pt agreed to continue nortiptyline, ativan. PLAN 1. Admit to M3 , cv 15 minutes checks for safety 2. Continue medications 3. Aftercare planning. 07/29/2022: No changes to current treatment plan. I spent minutes with the patient and/or on the patient floor today, greater than?50% of which was spent counseling/coordinating care. Reason for contiued inpatient stay Substantial Risk for: inability to function
[2022-07-29] MEDS: Acetaminophen 325 MG TABLET 650 MG PO ×2 (14:20→21:21)
[2022-07-29] MEDS: Cyclobenzaprine HCl 10 MG TABLET PO ×2 (14:21→21:21)
[2022-07-29 21:18] VITALS: BP 111/69; PULSE 114; RESP 16; TEMP 36.7; O2SAT 94
[2022-07-29] MEDS: Nortriptyline HCl 25 MG CAPSULE 50 MG PO (21:21)
[2022-07-30 08:00] VITALS: BP 105/64; PULSE 104; TEMP 36.6; O2SAT 96
[2022-07-30] MEDS: Omeprazole 20 MG CAPSULE.DR PO ×2 (08:38→17:03)
[2022-07-30] MEDS: Gabapentin 100 MG CAPSULE PO ×3 (08:38→21:06)
[2022-07-30] MEDS: LORazepam 1 MG TABLET PO ×3 (08:38→21:05)
--- NOTE | 2022-07-30 11:11 | P.PNPSI_ITS ---
Subjective Subjective Date of Service: 07/30/22 Reason For Visit: Depression Subjective Notes: Conditional Voluntary Interim History: Pt reports sleeping and eating better. She reports feeling less overwhelmed than Saturday when admitted. She denies suicidal or homicidal ideation. She reports ciatic pain less with combination of gabapentin and flexeril. She has been more visible on the unit. No behavioral concerns. Medication Compliance: Yes Side effects from medications: No Attending Groups: Yes Review of Systems Review of Systems Unremarkable Yes all other systems are reviewed and are negative Constitutional: Reports no additional constitutional complaints, Denies body ache(s), Denies chills, Denies fever(s), Denies headache(s), Reports lethargy and Denies weakness Eyes: Reports no additional eye complaints and Denies change in vision Reports system reviewed and no additional complaints, except as documented, Denies dizziness, Denies headache(s), Denies nasal congestion, Denies nasal discharge and Denies neck pain Cardiovascular: Reports no additional cardiovascular complaints, Denies chest pain, Denies leg edema and Denies dyspnea Respiratory: Reports no additional respiratory complaints, Denies cough and Denies dyspnea Gastrointestinal: Reports no additional gastrointestinal complaints, Denies abdominal pain, Denies diarrhea, Denies nausea and Denies vomiting Musculoskeletal: Reports no additional musculoskeletal complaints, Denies back pain, Denies arthralgias, Denies joint swelling, Denies neck pain, Denies numbness, Reports radiating pain into limb and Denies tingling Skin/Breast: Reports system reviewed and no additional complaints, except as docu and Denies rash Reports system reviewed and no additional complaints, except as documented, Denies Abnormal speech present, Denies dizziness, Denies headache(s), Denies numbness, Denies tingling and Denies weakness Psychiatric: Reports anxiety, Reports depression and Reports suicidal ideation Mental Status Exam Mental Status Exam Narrative: Appearance: casually groomed, fair hygiene in NAD Behavior:cooperative psychomotor: no agitation or retardation noted Speech: clear, normal rate/rhythm/volume, spontaneous Thought process: linear Thought content: feeling less overwhelmed, lonely Mood: better Affect: congruent, anxious SI: none HI: none VH/AH: none Delusions: none Insight/judgment: fair x 3. Memory/cog: alert, oriented x 3. MOCA on 06/09 scored 18/30, problems with recall (0/5), attention(1/6) and orientation (4/6). executive function fairly intact. Diagnostics Vital Signs (24Hr): Vital Signs - 24 hr 07/29/22 21:18 07/30/22 08:00 Temperature 98.1 F 97.9 F Pulse Rate 114 H 104 H Respiratory Rate 16 Blood Pressure 111/69 105/64 Pulse Oximetry 94 96 Oxygen Delivery Method Room Air Room Air BMI result Body Mass Index 34.3 Labs Results: 07/27/22 12:43 07/28/22 07:47 Medications Medications Current Medications Acetaminophen (Acetaminophen 325 Mg Tablet) 650 mg PO Q6H PRN PRN Reason: Headache/Pain Mild Scale (1-3) Last Admin: 07/29/22 21:21 Dose: 650 mg Al Hydroxide/Mg Hydroxide (Magnesium Hydrox/Alum Hydrox 30 Ml Oral.Susp) 30 ml PO Q6H PRN PRN Reason: Heartburn/Nausea Cyclobenzaprine HCl (Cyclobenzaprine Hcl 10 Mg Tablet) 10 mg PO TID PRN PRN Reason: Muscle Spasm Last Admin: 07/29/22 21:21 Dose: 10 mg Gabapentin (Gabapentin 100 Mg Capsule) 100 mg PO TID [facility] Last Admin: 07/30/22 08:38 Dose: 100 mg Hydroxyzine HCl (Hydroxyzine Hcl 25 Mg Tablet) 25 mg PO Q6H PRN PRN Reason: Anxiety Last Admin: 07/28/22 21:54 Dose: 25 mg Lorazepam (Lorazepam 1 Mg Tablet) 1 mg PO TID [facility] Last Admin: 07/30/22 08:38 Dose: 1 mg Magnesium Hydroxide (Milk Of Magnesia 30 Ml Oral.Susp) 30 ml PO DAILY PRN PRN Reason: Constipation Nortriptyline HCl (Nortriptyline Hcl 25 Mg Capsule) 50 mg PO BEDTIME [facility] Last Admin: 07/29/22 21:21 Dose: 50 mg Omeprazole (Omeprazole 20 Mg Capsule.Dr) 20 mg PO BID@0630,1630 [facility] Last Admin: 07/30/22 08:38 Dose: 20 mg Pharmacy Consult (Consult Rx Perform Med Rec) 1 each MISCELLANE ONCE PRN PRN Reason: Consult order Allergies Allergies Allergy/AdvReac Type Severity Reaction Status Date / Time clonazepam [From Klonopin] Allergy Unknown Verified 06/04/22 14:44 paroxetine [From Paxil] Allergy Unknown Verified 06/04/22 14:44 Assessment & Plan Assessment & Plan (1) MDD (major depressive disorder), recurrent episode, moderate: Status: Acute Code(s): F33.1 - Major depressive disorder, recurrent, moderate (2) MALCOLM (generalized anxiety disorder): Status: Acute Code(s): F41.1 - Generalized anxiety disorder Plan Ms. Padilla is a 52 year-old woman with hx of MDD, PTSD, MALCOLM who self presented to [facility] ED reporting increase depression, suicidal ideation with no plan in context of not having stable place to live and no supports. We discussed risks, benefits and alternative treatment options. Pt agreed to continue nortiptyline, ativan. PLAN 1. Admit to M3 , cv 15 minutes checks for safety 2. Continue medications 3. Aftercare planning. 07/29/2022: No changes to current treatment plan. 07/30 continue current tx. I spent minutes with the patient and/or on the patient floor today, greater than?50% of which was spent counseling/coordinating care. Reason for contiued inpatient stay Substantial Risk for: harm to self Time Spent With Patient Time: Total time managing care of this patient today ____ minutes.
[2022-07-30] MEDS: Throat Lozenge, Medicated LOZENGE 1 LOZENGE MUCOUS MEM ×2 (18:45→21:07)
[2022-07-30 20:57] VITALS: BP 135/63; PULSE 124; RESP 16; TEMP 36.8; O2SAT 97
[2022-07-30] MEDS: Nortriptyline HCl 25 MG CAPSULE 50 MG PO (21:04)
[2022-07-30] MEDS: Cyclobenzaprine HCl 10 MG TABLET PO (21:05)
[2022-07-30] MEDS: Acetaminophen 325 MG TABLET 650 MG PO (21:06)
[2022-07-31] MEDS: Gabapentin 100 MG CAPSULE PO ×2 (09:42→14:40)
[2022-07-31] MEDS: Omeprazole 20 MG CAPSULE.DR PO (09:42)
[2022-07-31] MEDS: LORazepam 1 MG TABLET PO ×2 (09:42→14:41)
[2022-07-31 10:00] VITALS: BP 138/89; PULSE 122; TEMP 36.7; O2SAT 98
--- NOTE | 2022-07-31 10:22 | P.DS_ITS ---
DS: Providers Provider Date of Service: 07/31/22 Date of admission: 07/27/22 16:17 Primary care physician: None Physician DS: Diagnosis Discharge Diagnosis (1) MDD (major depressive disorder), recurrent episode, moderate: Status: Acute (2) MALCOLM (generalized anxiety disorder): Status: Acute DS: Medications Discharge Medications Home Medications: Previous Rx's Medication Instructions Recorded cyclobenzaprine 10 mg tablet 10 mg PO TID PRN Muscle Spasm #90 07/31/22 tabs gabapentin 100 mg capsule 100 mg PO TID #90 caps 07/31/22 lorazepam 1 mg tablet 1 mg PO TID #90 tabs 07/31/22 nortriptyline 50 mg capsule 50 mg PO BEDTIME #30 caps 07/31/22 omeprazole 20 mg capsule,delayed 20 mg PO BID@0630,1630 #60 caps 07/31/22 release Mental Status Exam Mental Status Exam Narrative: Appearance: casually groomed, fair hygiene in NAD Behavior:cooperative psychomotor: no agitation or retardation noted Speech: clear, normal rate/rhythm/volume, spontaneous Thought process: linear Thought content: feeling less overwhelmed, lonely Mood: better Affect: congruent, anxious SI: none HI: none VH/AH: none Delusions: none Insight/judgment: fair x 3. Memory/cog: alert, oriented x 3. MOCA on 06/09 scored 18/30, problems with recall (0/5), attention(1/6) and orientation (4/6). executive function fairly intact. Data Data Completed and Pending Completed studies during hospitalization [Text1]: 07/27/22 07/27/22 07/27/22 12:43 12:43 12:43 WBC 7.1 RBC 5.00 Hgb 13.9 Hct 41.7 MCV 83.4 MCH 27.8 MCHC 33.3 RDW 14.1 Plt Count 357 MPV 9.2 L Immature Gran % (Auto) 0.3 Neut % (Auto) 64.7 Lymph % (Auto) 28.2 [place] % (Auto) 4.5 Eos % (Auto) 1.7 Baso % (Auto) 0.6 Lymph # (Auto) 2.0 [place] # (Auto) 0.3 Eos # (Auto) 0.1 Baso # (Auto) 0.0 Abs Immat Gran (auto) 0.02 Absolute Neuts (auto) 4.6 Absolute Nucleated RBC 0.000 Nucleated RBC % (auto) 0.0 Sodium 138 Potassium 4.5 Chloride 105 Carbon Dioxide 26 Anion Gap 12 BUN 14 Creatinine 0.68 Estim Creat Clear Calc 106.8 Estimated GFR > 60 Random Glucose 92 Fasting Glucose Estimat Average Glucose Hemoglobin A1c % Calcium 9.4 Total Bilirubin 0.3 Direct Bilirubin < 0.2 AST 29 ALT 34 H Alkaline Phosphatase 89 Total Protein 7.3 Albumin 4.2 Triglycerides Cholesterol LDL Cholesterol, Calc HDL Cholesterol Urine Opiates Screen Urine Fentanyl Screen Ur Barbiturates Screen Ur Phencyclidine Scrn Ur Amphetamines Screen U Benzodiazepines Scrn Urine Cocaine Screen U Marijuana (THC) Screen Ethyl Alcohol < 10 COVID-19 ([facility]) Negative COVID-19 Clin Com See Note 07/27/22 07/28/22 07/28/22 12:43 07:47 07:47 WBC RBC Hgb Hct MCV MCH MCHC RDW Plt Count MPV Immature Gran % (Auto) Neut % (Auto) Lymph % (Auto) [place] % (Auto) Eos % (Auto) Baso % (Auto) Lymph # (Auto) [place] # (Auto) Eos # (Auto) Baso # (Auto) Abs Immat Gran (auto) Absolute Neuts (auto) Absolute Nucleated RBC Nucleated RBC % (auto) Sodium 138 Potassium 4.6 Chloride 103 Carbon Dioxide 26 Anion Gap 14 BUN 13 Creatinine 0.68 Estim Creat Clear Calc 106.8 Estimated GFR > 60 Random Glucose Fasting Glucose 102 H Estimat Average Glucose 123 Hemoglobin A1c % 5.9 Calcium 9.8 Total Bilirubin 0.4 Direct Bilirubin AST 22 ALT 28 Alkaline Phosphatase 77 Total Protein 6.6 Albumin 3.9 Triglycerides 91 Cholesterol 190 LDL Cholesterol, Calc 133 HDL Cholesterol 39 Urine Opiates Screen Not Detected Urine Fentanyl Screen Not Detected Ur Barbiturates Screen Not Detected Ur Phencyclidine Scrn Not Detected Ur Amphetamines Screen Not Detected U Benzodiazepines Scrn Not Detected Urine Cocaine Screen Not Detected U Marijuana (THC) Screen POSITIVE H Ethyl Alcohol COVID-19 ([facility]) COVID-19 Clin Com 07/30/22 20:42 Throat Throat Culture - Preliminary Culture in progress. DS: Summary Hospital Course Hospital Course: Subjective Notes: Arellano Warning (given and understands) and Conditional Voluntary Narrative: Ms. Padilla is a 52 year-old woman with hx of MDD, PTSD, MALCOLM who self presented to [facility] ED reporting increase depression suicidal ideation without a plan. Pt was discharged from back in 06/2022 after similar presentation. Pt recently left her home in [place] to help her daughter in [place], but due to arguments, daughter asked her to leave. Her friend in [place] bought her a ticket and she was staying with her until about one month ago when they started having difficulties and pt left her house to go to a custodial. Pt reports feeling more depressed and lonely. She reports having suicidal ideation. she reported hopeless and overwhelmed about having to start all over again in a different state with no friends or family. In the ED, her utox is positive for cannabis. Past Psychiatric History: Inpatient: total of 4, last one about 2 years. - 05/2022; 06/2022 OP: none current. Used to see Dr. Marisela Jones [phone] ? Past trials: paxil (listed as allergy but unclear reaction), ativan, sertraline, prozac, effexor ? Suicide attempts: pt reports hx of 3 OD more than 10 years ag, to. Medical Evaluation Reviewed: Yes cbc with diff wnl, plastics factory worker, slightly elevated AST. HOSPITAL COURSE On the unit, pt presented as overwhelmed, hopeless, intermittent suicidal ideation with no plan or intent in context of multiple psychosocial stressors including lack of social support, recently relocated from [place] and has no services nor stable place to live. We discussed risks, benefits and alternative treatment options, pt agreed to continue medications she was last discharged as she reported they were helpful. She was continued on nortriptyline, ativan. She was recently prescribed gabapentin and methocarbamol for sciatic pain with good effect and is supposed to continue physical therapy. Pt gradually reported feeling much less overwhelmed, less depressed, less hopeless. She was worried about returning to custodial but with hope that continued work with her [employer] worker will eventually help her find a stable place to live. We discussed referral to day program- [facility]- that she can attend during the day instead of being in custodial all day long or even worse asked to leave custodial during the day. She denied suicidal or homicidal ideation. There were no incidences of disruptive behaviors nor need of restraint. Status at Discharge Cognitive/behavioral status at discharge: Pt with brighter, non labile affect. Pt reports feeling less overwhelmed, no SI/HI. Future oriented looking forward to continue tx and hopeful she will eventually find a more stable housing situation. Functional status at discharge: independent ambulation Overall status at discharge: patient is progressing back to baseline Time Spent with Patient Time attestation: Total time managing care of this patient today ____ minutes. Discharge Plan Discharge Anticipated Discharge Date/Time: 07/31/22 10:04 Patient Disposition: Home, Self-Care Discharge Diagnosis: MDD, recurrent, moderate MALCOLM PTSD Referrals: Therapist: Anel Tao [Other] - 08/02/22 2:00 pm (IN OFFICE) Medication Provider: Sheila Claros [Other] - 08/08/22 9:00 am (IN OFFICE) Medication Provider: Sheila Claros [Other] - 08/10/22 12:00 pm (IN OFFICE) Physician,None [Primary Care Provider] - 1 Week Discharge Medications: New omeprazole 20 mg Capsule,Delayed Release(Dr/Ec) 20 mg PO BID@0630,1630 Qty: 60 0RF gabapentin 100 mg Capsule 100 mg PO TID Qty: 90 0RF lorazepam 1 mg Tablet 1 mg PO TID Qty: 90 0RF nortriptyline 50 mg capsule 50 mg PO BEDTIME Qty: 30 0RF cyclobenzaprine 10 mg Tablet 10 mg PO TID PRN (Reason: Muscle Spasm) Qty: 90 0RF Discontinued methocarbamol 750 mg tablet 1 tab PO Q6H PRN (Reason: Muscle Spasm) gabapentin 100 mg capsule 1 cap PO TID lorazepam 1 mg tablet 1 mg PO TID PRN (Reason: Anxiety) omeprazole 20 mg Capsule,Delayed Release(Dr/Ec) 20 mg PO BID@0630,1630 Qty: 60 0RF nortriptyline 25 mg Capsule 50 mg PO BEDTIME Qty: 30 1RF Discharge Orders: Discharge Order (Routine); Ordered 07/31/22 Ordered By: Julia Michelle Diet: Regular diet Activity on Discharge: As tolerated Stand Alone Forms: Patient Portal Discharge page Care Plan Goals: 1. Maintain mood 2. No SI/HI. Health Concerns: Follow up with PCP for routine care. Follow up for sciatic pain and physical therapy. Plan of Treatment: 1. Take medications as prescribed. 2. Go to nearest ED or call ED in event of emergency. Assessment: Pt with brighter affect. No SI/HI. Sleeping and eating well. No signs of aggression towards self or others. She is future oriented in that she is looking forward to continue OP psych tx.
--- NOTE | 2022-07-31 15:43 | PC.NURSE ---
Patient easily engaged. Reports mood is anxious that is just me . Denies depression, sadness. Denies SI/HI plan or intent at this time. Denies perceptual disturbances, no overt psychosis or expressed delusions. Reports she is planning to go to senior living. Discharge paperwork reviewed with patient, reported understanding. Discharge medications reviewed with patient, reported understanding. All belongings taken with patient. Home meds returned to patient, money from safe returned to patient. Crisis numbers provided to patient. Information regarding walk in clinic provided.
== END 2022-07-31 15:05 | disposition home or self-care (01) | DRG 751 ==
LOC: HO.ED 15:38 → HO.PADLT16 16:31
PROVIDERS: Nurse Practitioner Family; Admitting Provider Social Worker; Emergency Provider Emergency Medicine Emergency Medical Services; Visit Provider Social Worker
DX: F33.1 Major depressive disorder, recurrent, moderate (principal); R45.851 Suicidal ideations; F41.1 Generalized anxiety disorder; G89.29 Other chronic pain; Z91.51 Personal history of suicidal behavior; Z20.822 Contact with and (suspected) exposure to COVID-19; Z87.891 Personal history of nicotine dependence; Z79.899 Other long term (current) drug therapy
CPT/HCPCS: 36415; 80048; 80053; 80061; 80076; 80307; 82077; 83036; 85025; 87070; 87635; 93005; 99285

== ENCOUNTER 2022-08-02 15:25 | Emergency (ER) | payer OTHER, SELFPAY ==
[2022-08-02 17:09] VITALS: BP 134/104; PULSE 113; RESP 18; TEMP 36.7; O2SAT 99; BMI 30.9
--- NOTE | 2022-08-02 17:11 | ED_ITS ---
HPI - URI/Sore Throat General Chief Complaint: Fever <GONZALO Akbar Last Filed: 08/02/22 17:17> Stated Complaint: Sore Throat,Fever <GONZALO Akbar Last Filed: 08/02/22 17:17> Time Seen by Provider: 08/02/22 18:04 <GONZALO Akbar Last Filed: 08/02/22 17:17> Source: patient <GONZALO Sy Last Filed: 08/02/22 18:40> Mode of arrival: ambulatory <GONZALO Sy Last Filed: 08/02/22 18:40> Limitations: no limitations <GONZALO Sy Last Filed: 08/02/22 18:40> History of Present Illness HPI Narrative: 52-year-old female with history of depression, anxiety presents to the ER for evaluation of 1 day of sore throat, runny nose, headache, fever and chills. She states she also has had 2 episode of loose stools which is nonbloody. She lives in a homeless group home and has had no known sick contacts, no one else with similar symptoms there. She states the worst part is her sore throat and she feels like she can barely swallow anything. She feels like her mouth is dry and she is dehydrated. She denies any shortness of breath, chest pain, nausea or vomiting. No abdominal pain associated with a 2 episodes of diarrhea. <GONZALO Sy Last Filed: 08/02/22 18:40> MD elicited complaint: fever, nasal congestion and other ( Headache and sore throat) <GONZALO Sy Last Filed: 08/02/22 18:40> Onset (ago): day(s) (1) <GONZALO Sy Last Filed: 08/02/22 18:40> Consistency: progressively worsening <GONZALO Sy Last Filed: 08/02/22 18:40> Severity: moderate <GONZALO Sy Last Filed: 08/02/22 18:40> Pain scale (0-10): 8 <GONZALO Sy Last Filed: 08/02/22 18:40> Able to tolerate fluids by mouth: Yes <GONZALO Sy Last Filed: 08/02/22 18:40> Exacerbating factors: swallowing <GONZALO Sy Last Filed: 08/02/22 18:40> Associated symptoms: fever, chills, myalgias, headache, nasal congestion, sore throat and cough <GONZALO Sy Last Filed: 08/02/22 18:40> Treatments prior to arrival: none <GONZALO Sy Last Filed: 08/02/22 18:40> Related Data Home Medications: Previous Rx's Medication Instructions Recorded cyclobenzaprine 10 mg tablet 10 mg PO TID PRN Muscle Spasm #90 07/31/22 tabs gabapentin 100 mg capsule 100 mg PO TID #90 caps 07/31/22 lorazepam 1 mg tablet 1 mg PO TID #90 tabs 07/31/22 nortriptyline 25 mg capsule 50 mg PO BEDTIME #60 caps 07/31/22 omeprazole 20 mg capsule,delayed 20 mg PO BID@0630,1630 #60 caps 07/31/22 release <GONZALO Akbar Last Filed: 08/02/22 17:17> Allergies/Adverse Reactions: Allergies Allergy/AdvReac Type Severity Reaction Status Date / Time clonazepam [From Klonopin] Allergy Unknown Verified 06/04/22 14:44 paroxetine [From Paxil] Allergy Unknown Verified 06/04/22 14:44 <GONZALO Akbar Last Filed: 08/02/22 17:17> Review of Systems Review of Systems: Constitutional: + Fever, + Chills ENT/Mouth: + sore throat, No Rhinorrhea, + Swallowing Difficulty, NO Otalgia Eyes: No Eye Pain, No Swelling, No Redness Cardiovascular: No Chest Pain, No SOB, No Orthopnea, No Edema Respiratory: + Cough, No Sputum, No Wheezing, No dyspnea Gastrointestinal: No Nausea, No Vomiting, + Diarrhea, No abdominal Pain Musculoskeletal: No joint pain, No Myalgias Skin: No Skin Lesions, No rash Neuro: +Weakness, No Numbness, No Dizziness, + Headache Psych: No Anxiety/Panic, No Depression Heme/Lymph: No Bruising, No Lymphadenopathy <GONZALO Sy Last Filed: 08/02/22 18:40> [facility] Past Medical History Medical History: Medical History MDD (major depressive disorder), recurrent episode, moderate <GONZALO Akbar - Last Filed: 08/02/22 17:17> Social History Social History: Social History Household Members: Other Household Members Other:: group home Housing: Other Housing Other:: group home Do you presently have visiting nurse or other home services: No Alcohol intake: never Patient Tobacco Use Status: Never used Tobacco Tobacco use type: Cigarette Years Smoked: 35 years e-Cigarette/Vaping Use: Never Used Second Hand Smoke Exposure: No Substance Use Type: Marijuana Advance Directives: No Advance Directives Information Provided: No service: No Sexual orientation: Don't Know <GONZALO Akbar - Last Filed: 08/02/22 17:17> Physical Exam Vital Signs: Vital Signs: Last Vital Signs Temp 98.0 F 08/02/22 17:09 Pulse 113 H 08/02/22 17:09 Resp 18 08/02/22 17:09 BP 134/104 H 08/02/22 17:09 Pulse Ox 99 08/02/22 17:09 O2 Del Method 08/02/22 17:09 BMI result Body Mass Index 30.9 <GONZALO Akbar - Last Filed: 08/02/22 17:17> Vital Signs: Last Vital Signs Temp 98.0 F 08/02/22 17:09 Pulse 113 H 08/02/22 17:09 Resp 18 08/02/22 17:09 BP 134/104 H 08/02/22 17:09 Pulse Ox 99 08/02/22 17:09 O2 Del Method 08/02/22 17:09 BMI result Body Mass Index 30.9 <GONZALO Sy - Last Filed: 08/02/22 18:40> Appearance: Alert. Oriented X3. No acute distress. Eyes: Pupils equal, round and reactive to light. ENT: Pharynx normal. Moist mucous membranes. Moderate generalized erythema of the posterior pharynx without any tonsillar swelling or exudate. Uvula midline. Voice is normal. Handling secretions normally. Neck: Normal inspection. Neck supple. No lymphadenopathy CVS: Normal heart rate and rhythm. Pulses normal. Respiratory: No respiratory distress. Breath sounds normal. Abdomen: Soft and nontender. +BS x4 Skin: Skin warm and dry. Normal skin color. Normal skin turgor. No rashes. Extremities: No lower extremity edema. Neuro: Oriented X 3. non-focal <GONZALO Sy Last Filed: 08/02/22 18:40> Course Course Course Narrative: KELLY-17:11PM -52yoF presenting to the ER with complaints of subjective fevers, chills, fatigue, malaise, sore throat, cough with intermittent sputum production and 2 episodes of diarrhea that started yesterday. Plan: SARS/RSV/FLU swab and strep ordered. Patient sent back to waiting room for further evaluation treatment and emergency Minor Care. <GONZALO Akbar Last Filed: 08/02/22 17:17> Reevaluation(s) Reevaluation #1: Viral swab is negative. she is given Motrin and viscous lidocaine for her sore throat and is tolerating it well. Tachycardia resolved, most likely due to anxiety on arrival. Her symptoms are most likely due to a viral URI. We discussed symptomatic care. She is stable for discharge home. <GONZALO Sy Last Filed: 08/02/22 18:40> Medical Decision Making Lab Data Labs: Lab Results 08/02/22 08/02/22 Range/Units 17:17 17:17 Influenza Type A (PCR) NEGATIVE (Negative) Influenza Type B (PCR) NEGATIVE (Negative) RSV RNA Qual (PCR) NEGATIVE (Negative) SARS-CoV-2 RNA (RT-PCR) NEGATIVE (Negative) S. pyogenes GrpA KANIKA Negative (Negative) <GONZALO Akbar Last Filed: 08/02/22 17:17> Lab Results 08/02/22 08/02/22 Range/Units 17:17 17:17 Influenza Type A (PCR) NEGATIVE (Negative) Influenza Type B (PCR) NEGATIVE (Negative) RSV RNA Qual (PCR) NEGATIVE (Negative) SARS-CoV-2 RNA (RT-PCR) NEGATIVE (Negative) S. pyogenes GrpA KANIKA Negative (Negative) <GONZALO Sy Last Filed: 08/02/22 18:40> Discharge Plan Discharge Clinical Impression: Viral URI <GONZALO Akbar - Last Filed: 08/02/22 17:17> Patient Disposition: Home, Self-Care <GONZALO Akbar - Last Filed: 08/02/22 17:17> Instructions: Viral Syndrome (ED) <GONZALO Akbar - Last Filed: 08/02/22 17:17> Additional Instructions: You tested negative for COVID, Flu, RSV and Strep throat. You most likely have another viral illness that is causing her symptoms. Treatment is rest and supportive care. Take [id number] cold and flu medications as needed for your symptoms. Recommend gargling with warm salt water 2-3 times per day. Recommend [id number] Chloraseptic spray and Cepacol lozenges for sore throat. Take Motrin and Tylenol as needed for pain. Make sure you are drinking plenty of fluids. Follow-up with your doctor next week. If you develop new or worsening symptoms call 911 or come back to the ER for further evaluation. <GONZALO Akbar - Last Filed: 08/02/22 17:17> Prescriptions: No Action omeprazole 20 mg Capsule,Delayed Release(Dr/Ec) 20 mg PO BID@0630,1630 Qty: 60 0RF cyclobenzaprine 10 mg Tablet 10 mg PO TID PRN (Reason: Muscle Spasm) Qty: 90 0RF nortriptyline 25 mg Capsule 50 mg PO BEDTIME Qty: 60 0RF gabapentin 100 mg Capsule 100 mg PO TID Qty: 90 0RF lorazepam 1 mg Tablet 1 mg PO TID Qty: 90 0RF <GONZALO Abkar - Last Filed: 08/02/22 17:17>
[2022-08-02 17:52] LABS: Strep A Nucleic Acid Negative (Negative)
[2022-08-02 18:15] LABS: Influenza A PCR NEGATIVE (Negative); Influenza B PCR NEGATIVE (Negative); Resp Syncy Virus RNA Qual PCR NEGATIVE (Negative); SARS COV2 PCR INHOUSE NEGATIVE (Negative)
[2022-08-02] MEDS: Ibuprofen 600 MG TABLET PO (18:44)
[2022-08-02] MEDS: Lidocaine HCl Viscous 2 % 15 ML SOLUTION MUCOUS MEM (18:45)
== END 2022-08-02 18:48 | disposition home or self-care (01) ==
PROVIDERS: Physician Assistant Medical; Emergency Provider Internal Medicine
DX: J06.9 Acute upper respiratory infection, unspecified (principal); R50.9 Fever, unspecified; J02.9 Acute pharyngitis, unspecified; F17.210 Nicotine dependence, cigarettes, uncomplicated; Z71.6 Tobacco abuse counseling; Z20.822 Contact with and (suspected) exposure to COVID-19; Z79.899 Other long term (current) drug therapy
CPT/HCPCS: 0241U; 87651; 99283

== ENCOUNTER 2022-12-08 11:38 | Emergency (ER) | payer OTHER, SELFPAY ==
[2022-12-08 11:46] VITALS: BP 137/94; BP 150/94; PULSE 80; PULSE 84; RESP 18; TEMP 36.8; O2SAT 94; O2SAT 96; BMI 34.0
--- NOTE | 2022-12-08 12:44 | MHC.CARE ---
Care team contacted Pt's sister, Ms. Cayla Padilla. She was unaware that her sister was currently in the Pod due being anxious and depressed. She states that her sister is residing in a homeless alf and should be getting her own apartment within the next month and half. Cayla reported that her sister is self sufficient and struggles being in a alf as she likes to cook and clean. Currently, she is only allowed to heat up food in a microwave. They speak daily and she did not note anything alarming yesterday, she did report that she had been trying to get a hold of her today but no response. Cayla states that she had informed her sister that if she had any thoughts of self harming to reach out to her. She has told her sister to come live with her but that she doesn't want to overwhelm her. Cayla did state that her sister does have a strained relationship with her daughter, however they do speak. She knows her sister has a therapist,however does not know their name. Cayla would like to have her sister contact her when she can and is requesting a call back from the Care team.
[2022-12-08] MEDS: LORazepam 1 MG TABLET 2 MG PO (12:58)
[2022-12-08 13:01] LABS: Appearance Urine Clear; Color Urine Yellow; Glucose Urine UA Negative (Negative); Leukocyte Esterase Urine Negative (Negative); Nitrite Urine Negative (Negative); Urine Blood Negative (Negative); Urine Ketones Negative (Negative); Urine Protein Negative (Neg-Trace)
[2022-12-08 13:03] LABS: Bacteria Urine None Seen (None Seen); Hyaline Casts Urine 0-2 /LPF (0-2); RBC Urine 0-2 /HPF (0-2); Squamous Epithelial Cell Urine 0-2 /HPF (0-2); WBC Urine 0-5 /HPF (0-5)
[2022-12-08 13:08] LABS: Amphetamine Screen Urine Not Detected (Not Detect); Barbiturates, Urine Not Detected (Not Detect); Benzodiazepines Screen Urine Not Detected (Not Detect); Cannabinoid Screen Urine Not Detected (Not Detect); Cocaine Screen Urine Not Detected (Not Detect); Fentanyl, urine Not Detected (Not Detect); Opiate Screen Urine Not Detected (Not Detect); Phencyclidine Screen Urine Not Detected (Not Detect)
[2022-12-08 13:15] LABS: COVID-19 Test Negative (Negative); IDNOW Serial# BCCEAD1C
[2022-12-08 14:25] VITALS: BP 134/84; PULSE 108; RESP 18; O2SAT 98
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
== END 2022-12-08 14:46 | disposition home or self-care (01) ==
PROVIDERS: Emergency Provider Emergency Medicine Emergency Medical Services; PCP Internal Medicine
DX: F41.9 Anxiety disorder, unspecified (principal); F41.0 Panic disorder [episodic paroxysmal anxiety]; Z20.822 Contact with and (suspected) exposure to COVID-19; F33.1 Major depressive disorder, recurrent, moderate; F12.90 Cannabis use, unspecified, uncomplicated; Z79.899 Other long term (current) drug therapy
CPT/HCPCS: 80307; 81001; 87086; 87635; 99284

== ENCOUNTER 2023-12-26 02:33 | Emergency (ER) | payer OTHER, SELFPAY ==
--- NOTE | 2023-12-26 | ECG_ITS ---
Test Reason : anxity Blood Pressure : / mmHG Vent. Rate : 092 BPM Atrial Rate : 092 BPM P-R Int : 166 ms QRS Dur : 076 ms QT Int : 360 ms P-R-T Axes : 033 002 012 degrees QTc Int : 445 ms Normal sinus rhythm Cannot rule out Anterior infarct , age undetermined Abnormal ECG When compared with ECG of 27-JUL-2022 16:12, Nonspecific T wave abnormality now evident in Anterior leads Referred By: Generic ED Physician Electronically Signed By:Sidney Delgado
[2023-12-26 02:35] VITALS: BP 134/74; PULSE 102; O2SAT 98
[2023-12-26 02:47] VITALS: BP 122/81; PULSE 102; RESP 20; TEMP 36.9; O2SAT 97; BMI 33.6
[2023-12-26 05:25] VITALS: BP 112/64; PULSE 68; RESP 16; TEMP 37.1; O2SAT 99
== END 2023-12-26 06:29 | disposition left against medical advice (07) ==
PROVIDERS: Emergency Provider Emergency Medicine
DX: F41.1 Generalized anxiety disorder (principal); R94.31 Abnormal electrocardiogram [ECG] [EKG]; R07.89 Other chest pain
CPT/HCPCS: 93005; 99283

== ENCOUNTER → 2023-12-26 03:01 | Outpatient (BNV) | payer OTHER, SELFPAY | PROVIDERS: Emergency Provider Emergency Medicine; Visit Provider Internal Medicine Cardiovascular Disease | DX: R94.31 Abnormal electrocardiogram [ECG] [EKG] (principal) | CPT/HCPCS: 93010 ==

== ENCOUNTER 2024-08-08 15:58 | Emergency (ER) | payer OTHER, SELFPAY ==
--- NOTE | ~2024-08-08 | XR_ITS ---
EXAMINATION: XR chest 2V CLINICAL INFORMATION: chest pain COMPARISON: None. TECHNIQUE: 2 views of the chest FINDINGS: Clear lungs. No pneumothorax. No pleural effusion. Normal cardiomediastinal silhouette. XR/XR chest 2V IMPRESSION: Clear lungs. Electronically signed by: Adrienne Cowan MD 08/08/2024 05:42 PM [facility]
--- NOTE | 2024-08-08 16:01 | ECG_ITS ---
Test Reason : CHEST BERMUDEZ Blood Pressure : / mmHG Vent. Rate : 098 BPM Atrial Rate : 098 BPM P-R Int : 150 ms QRS Dur : 072 ms QT Int : 348 ms P-R-T Axes : 020 006 011 degrees QTc Int : 444 ms Normal sinus rhythm Cannot rule out Anterior infarct (cited on or before 26-DEC-2023) Abnormal ECG When compared with ECG of 26-DEC-2023 03:01, No significant change was found Referred By: Generic ED Physician Electronically Signed By:SAMMY MANDUJANO
[2024-08-08 16:58] VITALS: BP 139/85; PULSE 95; RESP 18; TEMP 36.9; O2SAT 99; BMI 37.8
[2024-08-08 17:48] LABS: MANUAL DIFF FLAG NO
[2024-08-08 17:50] LABS: Basophils Absolute Auto 0.1 X10*3/uL (0.0-0.2); Basophils Percent Auto 0.5 % (0-2); Eosinophils Absolute Auto 0.1 X10*3/uL (0.0-0.4); Eosinophils Percent Auto 1.5 % (0-4); Hematocrit 44.4 % (37.0-47.0); Hemoglobin 14.8 g/dl (12.0-16.0); Imm Gran Abs Auto 0.03 X10*3/uL (0.00-0.03); Imm Gran Pct Auto 0.3 % (0.0-0.4); Lymphocytes Absolute Auto 2.4 X10*3/uL (1.2-4.9); Lymphocytes Percent Auto 24.7 % (20-40); Mean Corpuscular HGB Conc 33.3 g/dl (31.0-35.0); Mean Corpuscular Hemoglobin 27.4 pg (27.0-33.0); Mean Corpuscular Volume 82.1 fL (80.0-98.0); Mean Platelet Volume 9.1 fL (9.4-12.3); Monocytes Absolute Auto 0.4 X10*3/uL (0.1-1.2); Neutrophils Absolute Auto 6.6 x10*3/uL (2.0-8.3); Platelet Count 356 X10*3/uL (160-400); Red Blood Count 5.41 X10*6/uL (4.20-5.50); Red Cell Distribution Width 13.3 % (11.0-16.0); White Blood Count 9.6 X10*3/uL (4.8-10.8)
[2024-08-08 18:03] LABS: Alanine Aminotransferase 51 U/L (0-31); Alkaline Phosphatase 115 U/L (39-117); Anion Gap 11 (12-20); Aspartate Amino Transferase 37 U/L (5-31); Bilirubin Total 0.3 mg/dL (0.0-1.0); Blood Urea Nitrogen 13 mg/dL (9-16); Carbon Dioxide 27 mmol/L (22-29); Chloride 105 mmol/L (96-108); Creatinine Clr Calc Pharmacy 94.5; Estimated Glomerular Filt Rate > 60; Glucose Random 102 mg/dL (60-115); Magnesium 1.8 mg/dL (1.6-2.6); Potassium 4.2 mmol/L (3.3-5.1); Sodium 139 mmol/L (135-145); Total Protein 7.5 g/dL (6.5-8.0)
[2024-08-08 18:10] LABS: Troponin-I High Sensitivity < 2.7 ng/L (<3.5-17.0)
[2024-08-08 18:27] LABS: Influenza A PCR NEGATIVE (Negative); Influenza B PCR NEGATIVE (Negative); Resp Syncy Virus RNA Qual PCR NEGATIVE (Negative); SARS COV2 PCR INHOUSE NEGATIVE (Negative)
[2024-08-08 18:53] VITALS: BP 113/62; BP 122/65; PULSE 85; PULSE 91
[2024-08-08 18:54] VITALS: BP 119/60; PULSE 106
[2024-08-08 18:55] VITALS: BP 114/61; PULSE 91; RESP 16; TEMP 36.8; O2SAT 98
[2024-08-08 19:59] VITALS: BP 123/70; PULSE 91; RESP 16; TEMP 36.8; O2SAT 97
--- NOTE | 2024-08-08 20:48 | ED.GENADULT ---
HPI - General Adult General Chief complaint: General Medical Stated complaint: Chest pain Time Seen by Provider: 08/08/24 19:51 Source: patient, RN notes reviewed and old records reviewed Mode of arrival: ambulatory Limitations: no limitations History of Present Illness ED Provider: Obdulia CRUZ narrative: 54-year-old female presents for evaluation chest pain. She reports that last night she could not sleep because she had some chest tightness and ?I just did not feel right. ? She reports she felt somewhat lightheaded She reports her symptoms have completely resolved. She currently has no chest pain, lightheadedness, weakness. Denies any fevers, chills, cough, shortness of breath. Denies any leg swelling. Denies any recent medication changes Related Data Previous Rx's ?Medication ?Instructions ?Recorded cyclobenzaprine 10 mg tablet 10 mg PO TID PRN Muscle Spasm #90 07/31/22 tabs gabapentin 100 mg capsule 100 mg PO TID #90 caps 07/31/22 nortriptyline 25 mg capsule 50 mg (2 x 25 mg) PO BEDTIME #60 07/31/22 caps omeprazole 20 mg capsule,delayed 20 mg PO BID@0630,1630 #60 caps 07/31/22 release lorazepam 1 mg tablet (Ativan) 1 mg PO TID PRN anxiety 5 days #15 08/03/22 tabs Allergies Allergy/AdvReac Type Severity Reaction Status Date / Time clonazepam [From Klonopin] Allergy Unknown Verified 08/08/24 17:02 paroxetine [From Paxil] Allergy Unknown Verified 08/08/24 17:02 Review of Systems Constitutional: Constitutional: Denies body ache(s), Denies chills, Denies fever(s) and Denies headache(s) Eyes: Eyes: Denies blurry vision ENT: Denies vertigo, Denies dizziness and Denies headache(s) Cardiovascular: Cardiovascular: Reports chest pain, Denies rapid heart rate, Reports lightheadedness, Denies palpitations and Denies dyspnea Respiratory: Respiratory: Denies cough and Denies dyspnea Gastrointestinal: Gastrointestinal: Denies abdominal pain, Denies nausea and Denies vomiting Musculoskeletal: Musculoskeletal: Denies back pain Integumentary/Breasts: Skin/Breast: Denies rash Neurologic: Denies vertigo, Denies dizziness and Denies headache(s) Endocrine: Endocrine: Denies palpitations PMFSH Past Medical History Medical History MDD (major depressive disorder), recurrent episode, moderate Social History Social History Household Members: Other Household Members Other:: correction Housing: Other Housing Other:: correction Do you presently have visiting nurse or other home services: No Alcohol intake: never Patient Tobacco Use Status: Never used Tobacco Tobacco use type: Cigarette Years Smoked: 35 years Smoked in Last 30 Days: No e-Cigarette/Vaping Use: Never Used Second Hand Smoke Exposure: No Use of substances other than those prescribed or required for medical reasons: No Substance Use Type: Marijuana Advance Directives: No Advance Directives Information Provided: No Patient : No service: No Sexual orientation: Don't Know Physical Exam ED Vital Signs: Vital Signs - 24 hr 08/08/24 16:58 08/08/24 18:53 08/08/24 18:53 Temperature 98.5 F Pulse Rate 95 91 85 Respiratory Rate 18 Blood Pressure 139/85 113/62 122/65 Pulse Oximetry 99 Oxygen Delivery Method Room Air 08/08/24 18:54 08/08/24 18:55 08/08/24 19:59 Temperature 98.3 F 98.2 F Pulse Rate 106 H 91 91 Respiratory Rate 16 16 Blood Pressure 119/60 114/61 123/70 Pulse Oximetry 98 97 Oxygen Delivery Method Room Air Room Air 08/08/24 20:59 Temperature 98.2 F Pulse Rate 91 Respiratory Rate 16 Blood Pressure 123/70 Pulse Oximetry 97 Oxygen Delivery Method Room Air BMI result Body Mass Index 37.8 Const General: healthy appearing, comfortable, no acute distress, alert and awake Nutritional Appearance: well nourished Orientation/consciousness: patient oriented x3 HENMT Head: Yes normocephalic and Yes atraumatic Eyes Eyelids: Yes eyelids normal Conjunctivae: conjunctivae normal Sclerae: sclerae normal Corneas: corneas normal Pupils: Equal, round and reactive pupils present EOM: EOMs intact bilaterally Neck Neck: Yes full ROM Resp Effort & Inspection: normal respiratory effort, able to speak in complete sentences and not labored Skin General skin exam: elasticity normal Neuro General: patient oriented x3 Cranial nerves: Yes Equal, round and reactive pupils present and Yes Bilaterally intact EOM present Cognition (Neuro): normal cognition Extrem Other: Moving all extremities well without any obvious deformities Medical Decision Making Medical Decision Making [facility] Narrative: 54-year-old female presents for evaluation of chest tightness and lightheadedness. Her symptoms started last night and resolved upon my evaluation. Her labs are reassuring including a negative troponin despite symptoms starting last night., vital signs are within normal limits. There is a very mild elevation of AST and ALT of unclear etiology but may be related to a viral illness the patient is negative for influenza, COVID-19, RSV. EKG shows normal sinus rhythm with no significant change when compared to previous from December 26, 2023. Given that her vital signs are stable, she was negative workup and she is currently asymptomatic, she will be discharged to follow up with her PCP. Her symptoms may have been related to anxiety or a viral illness Differential Diagnosis Differential Diagnoses: The differential diagnosis associated with the presentation includes Anxiety Palpitations Chest tightness Has been Arrhythmia ACS less likely Lab Data [facility] Lab Attestation statement: I reviewed the patient's lab results. No leukocytosis or anemia. Normal platelet count. No electrolyte abnormalities. Troponin negative. Slight elevation AST and ALT which may be related to a viral illness 08/08/24 17:43 08/08/24 17:43 Labs: Lab Results 08/08/24 Range/Units 17:43 WBC 9.6 (4.8-10.8) X10*3/uL RBC 5.41 (4.20-5.50) X10*6/uL Hgb 14.8 (12.0-16.0) g/dl Hct 44.4 (37.0-47.0) % MCV 82.1 (80.0-98.0) fL MCH 27.4 (27.0-33.0) pg MCHC 33.3 (31.0-35.0) g/dl RDW 13.3 (11.0-16.0) % Plt Count 356 (160-400) X10*3/uL MPV 9.1 L (9.4-12.3) fL Immature Gran % (Auto) 0.3 (0.0-0.4) % Neut % (Auto) 69.0 (45-73) % Lymph % (Auto) 24.7 (20-40) % [place] % (Auto) 4.0 (2-11) % Eos % (Auto) 1.5 (0-4) % Baso % (Auto) 0.5 (0-2) % Lymph # (Auto) 2.4 (1.2-4.9) X10*3/uL [place] # (Auto) 0.4 (0.1-1.2) X10*3/uL Eos # (Auto) 0.1 (0.0-0.4) X10*3/uL Baso # (Auto) 0.1 (0.0-0.2) X10*3/uL Abs Immat Gran (auto) 0.03 (0.00-0.03) X10*3/uL Absolute Neuts (auto) 6.6 (2.0-8.3) x10*3/uL Absolute Nucleated RBC 0.000 (0.0-0.012) X10*3/uL Nucleated RBC % (auto) 0.0 (0.0-0.2) /100WBC Sodium 139 (135-145) mmol/L Potassium 4.2 (3.3-5.1) mmol/L Chloride 105 (96-108) mmol/L Carbon Dioxide 27 (22-29) mmol/L Anion Gap 11 L (12-20) BUN 13 (9-16) mg/dL Creatinine 0.79 (0.5-1.4) mg/dL Estim Creat Clear Calc 94.5 Estimated GFR > 60 Random Glucose 102 (60-115) mg/dL Calcium 9.0 D (8.4-10.2) mg/dL Magnesium 1.8 (1.6-2.6) mg/dL Total Bilirubin 0.3 (0.0-1.0) mg/dL AST 37 H (5-31) U/L ALT 51 H (0-31) U/L Alkaline Phosphatase 115 (39-117) U/L Troponin I High Sens < 2.7 (<3.5-17.0) ng/L Total Protein 7.5 (6.5-8.0) g/dL Albumin 4.0 (3.5-5.0) g/dL Influenza Type A (PCR) NEGATIVE (Negative) Influenza Type B (PCR) NEGATIVE (Negative) RSV RNA Qual (PCR) NEGATIVE (Negative) SARS-CoV-2 RNA (RT-PCR) NEGATIVE (Negative) Independent Interpretation I performed an independent interpretation of an: EKG (As above) Radiology Impression Discussion of test interpretation with radiology: I have reviewed the radiologist's reading. Radiologist Impression: XR/XR chest 2V IMPRESSION: Clear lungs. Electronically signed by: Adrienne Cowan MD 08/08/2024 05:42 PM [facility] Discharge Plan Discharge Clinical Impression: Chest pain Patient Disposition: Home, Self-Care Instructions: Chest Pain (ED) Additional Instructions: Your workup in the ER today was reassuring. This includes your blood work, EKG. Your viral swabs were negative for influenza, COVID-19, RSV Prescriptions: No Action omeprazole 20 mg Capsule,Delayed Release(Dr/Ec) 20 mg PO BID@0630,1630 Qty: 60 0RF cyclobenzaprine 10 mg Tablet 10 mg PO TID PRN (Reason: Muscle Spasm) Qty: 90 0RF nortriptyline 25 mg Capsule 50 mg PO BEDTIME Qty: 60 0RF gabapentin 100 mg Capsule 100 mg PO TID Qty: 90 0RF lorazepam [Ativan] 1 mg tablet 1 mg PO TID PRN (Reason: anxiety) 5 Days Qty: 15 0RF Interventions: ED Discharge Assessment Last Done: 08/08/24 20:59 Discharge Date/Time: 08/08/24 21:00 Print Language: Mozambican
[2024-08-08 20:59] VITALS: BP 123/70; PULSE 91; RESP 16; TEMP 36.8; O2SAT 97
== END 2024-08-08 21:00 | disposition home or self-care (01) ==
PROVIDERS: Emergency Provider Emergency Medicine
DX: R07.9 Chest pain, unspecified (principal); Z03.818 Encounter for observation for suspected exposure to other biological agents ruled out; Z79.899 Other long term (current) drug therapy
CPT/HCPCS: 0241U; 71046; 80053; 83735; 84484; 85025; 93005; 99284

== ENCOUNTER → 2024-08-08 16:01 | Outpatient (BNV) | payer OTHER, SELFPAY | PROVIDERS: Emergency Provider Emergency Medicine; Visit Provider Internal Medicine | DX: R94.31 Abnormal electrocardiogram [ECG] [EKG] (principal) | CPT/HCPCS: 93010 ==

== ENCOUNTER 2024-09-03 01:48 | Emergency (ER) | payer OTHER, SELFPAY ==
[2024-09-03 02:18] VITALS: BP 131/75; BP 138/70; PULSE 80; PULSE 90; RESP 18; TEMP 36.7; O2SAT 97; O2SAT 99; BMI 38.1
[2024-09-03 05:12] VITALS: BP 116/73; PULSE 74; RESP 20; TEMP 36.6; O2SAT 98
== END 2024-09-03 06:07 | disposition left against medical advice (07) ==
PROVIDERS: Emergency Provider Emergency Medicine; PCP Student in an Organized Health Care Education/Training Program
DX: R10.13 Epigastric pain (principal); R11.0 Nausea; R07.89 Other chest pain
CPT/HCPCS: 99281; 99283; 99284